=== PATIENT | female | born 1935 | race Caucasian/White ===

== ENCOUNTER → 2016-06-29 | Day surgery (SDC) | payer BC ==
[2016-06-28 10:50] VITALS: Ht 170.2 cm; Wt 56.8 kg
[~2016-06-29] VITALS: Ht 170.2 cm; Wt 56.8 kg
[~2016-06-29] MED LIST: 500ML BSS 0.3ML EPI 1:1000PF IRRIG ONE; ACETAMINOPHEN 325 MG TAB PO PRN; AMLO-114 PO; AMVISC PLUS 0.8ML SYRINGE INT OCU ONE; ASCA500 PO; ASPCH81X PO; ATROPINE SULFATE 0.1 MG/ML 5ML SYR IV PRN; AcetaZOLAMIDE 250 MG TAB PO SCH; BETAXOLOL HCL 0.25% OP SUSP PER DROP CHARGE OPL SCH; BRIMONIDINE TART 0.2% OP SOLN PER DROP CHARGE ONE; BSS FLUSH ONE; CARB25TA12 PO; CLON0.5T3 PO; CLTP PO; ENDOCOAT 0.85ML SYRINGE INT OCU ONE; EpHEDrine SULFATE INJ 50 MG/ML AMP IV PRN; EpINEphrine INJ 1MG/ML AMP 1 MG/ML AMP ONE; FENTANYL CITRATE INJ 50 MCG/1 ML 2 ML VIAL IV PRN; FLUMAZENIL 0.1 MG/1 ML 10 ML VIAL IV PRN; FLUO40CA8 PO; HYDROmorphone INJ 2 MG/ML SYR/VIAL IV PRN; LABETALOL HCL IV 5 MG/ML 20ML IV PRN; LACTATED RINGER'S 1000ML 500 ML IV SCH; LIDOCAINE 4% OP SOLN DROP CHARGE ONE; LIDOCAINE 4% OP SOLN DROP CHARGE OPL SCH; LIDOCAINE HCL 1% MPF 2 ML VIAL ONE; MEPERIDINE HCL 25 MG/ML CARP IV PRN; MIDAZOLAM HCL 1 MG/ML 2ML VIAL ONE; MIX: 4ML BSS 1ML EPI 1:1000 PF INSTIL ONE; MOXIFLOXACIN OPH SOLN PER DROP CHARGE ONE; NALOXONE HCL 0.4 MG/1 ML VIAL/CARP IV PRN; OCUCOAT 1 ML SOLN IO ONE; OMEP40CA PO; ONDANSETRON INJ 2 MG/ML 2 ML VIAL IV PRN; PHENYLEPHRINE 100MCG/ML 5ML SYR IV PRN; POVIDONE-IODINE OP SOLN 30 ML BTL ONE; PROPARACAINE 0.5% OP SOLN PER DROP CHARGE OPL SCH; SENNTAB23 PO; TOBRAMYCIN/DEXAMETHASONE OPH OINT PER APPLN CHARGE ONE; ZCRT/40 PO
--- NOTE | 2016-06-29 08:22 | History & Physical Bridge - SC ---
H&P Re-Evaluation Bridge Note: I have examined the patient, reviewed the History & Physical and in the interval since the performance of the History & Physical I have noted the following changes of clinical significance: No changes noted
[2016-06-29] MEDS: PHENYLEPHRINE HCL 2.5% OP SOLN PER DROP CHARGE OPL SCH ×2 (10:19→10:24)
[2016-06-29] MEDS: TROPICAMIDE 1% OP SOLN PER DROP CHARGE OPL SCH ×2 (10:20→10:25)
[2016-06-29] MEDS: CYCLOPENTOLATE HCL 1% OP SOLN PER DROP CHARGE OPL SCH ×2 (10:21→10:26)
[2016-06-29] MEDS: MOXIFLOXACIN OPH SOLN PER DROP CHARGE OPL SCH ×2 (10:22→10:32)
--- NOTE | 2016-06-29 11:08 | Discharge Instructions-SurgCtr ---
Discharge Instructions Visit Reason for Visit: Cataract Left Eye Discharge Discharge Diagnosis / Problem: Lens Implant Left Eye Discharge Goals Goal(s): Improve function Activity Recommendations Activity Limitations: resume your previous activity Lifting Limitations: no more than 10 pounds Exercise/Sports Limitations: gradually increase as tolerated May Resume Sexual Activity: when tolerated Shower/Bathe: tomorrow Driving or Machine Use: resume 1 day after discharge Anesthesia . Post Anesthesia Instructions: If you have had General Anesthesia or IV Sedation: * Do not drive today. * Resume driving when surgeon permits. * Do not make important decisions or sign legal documents today. * Call surgeon for: 1. Temperature elevations greater than 101 degrees F. 2. Uncontrollable pain. 3. Excessive bleeding. 4. Persistent nausea and vomiting. 5. Medication intolerance (nausea, vomiting or rash). * For nausea and vomiting use only clear liquids such as: tea, soda, bouillon until nausea subsides, then gradually increase diet as tolerated. * If you have any concerns or questions, call your surgeon's office. If physician is unavailable and it is an emergency, call 911 or go to the nearest emergency room. . Instructions / Follow-Up Instructions / Follow-Up ACTIVITY RECOMMENDATIONS: * Light activities. * Mild irritation and blurred vision are common for the first few days. * You may walk outside, read, watch television. * Redness around the white part of the eye is common. MEDICATIONS: Resume previous medications unless instructed otherwise by your surgeon. * Take white Diamox (Acetazolamide) tablet at 1 pm today. Start all eye drops at 1 pm today: * Eye drops (today and tomorrow): Prednisone - one drop in operative eye every 3 hours while awake Besivance - one drop in operative eye every 3 hours while awake SPECIAL CARE INSTRUCTIONS: * Tape plastic shield over eye to sleep at night. Call your doctor at with any concerns or problems. FOLLOW UP VISIT: Follow-up with Dr Perales at [place] office as scheduled. Diet Recommendations Home Diet: no limitations Pending Studies Studies pending at discharge: no Medical Emergencies . Who to Call and When: Medical Emergencies: If at any time you feel your situation is an emergency, please call 911 immediately. . Non-Emergent Contact Non-Emergency issues call your: Policy Writer Call Non-Emergent contact if: your pain is not controlled [phone] . . "Provider Documentation" section prepared by Sarath Perales.
--- NOTE | 2016-06-29 11:10 | [facility] Operative Report ---
Operative Report 1. PREOPERATIVE DIAGNOSIS: Senile nuclear cataract, left eye. 2. POSTOPERATIVE DIAGNOSIS: Senile nuclear cataract, left eye. 3. PROCEDURE: Phacoemulsification of left cataract with posterior chamber lens implant, type [employer], model MX60, power +21.5 diopters. ANESTHESIA: Local standby. SURGEON: Dr. Perales. COMPLICATIONS: None. OPERATING TIME: 10 minutes. 4. OPERATION AND FINDINGS: DESCRIPTION OF PROCEDURE: The left pupil was dilated. The anesthetic was administered using a topical technique. The left eye was prepped and draped. A speculum was placed. A clear corneal incision was formed. The chamber was filled with Amvisc Plus and Endocoat. Epinephrine solution was used. A paracentesis was placed. A capsulorrhexis was performed. The nucleus was hydrodissected. The lens was removed with phacoemulsification. Time was 3.55 seconds. The aspiration unit was used to remove the cortex. The capsule was filled with Amvisc Plus. The lens implant was folded and placed into the capsule. The incision was hydrated. The Amvisc was aspirated. The wound was secure. The chamber was deep. The pupil was round. TobraDex ointment and Vigamox solution were placed. The speculum was removed. The patient was returned to the Recovery Room in stable condition. I attest to the content of the Intraoperative Record and any orders documented therein. Any exceptions are noted below. The scribe's documentation has been prepared in my presence, under my direction and personally reviewed by me in its entirety. I confirm that the note above accurately reflects all work, treatment, procedures, and medical decision making performed by me. I personally scribed for Sarath Perales M.D. ([email or web address]) on 06/29/16 at 11:10. Electronically submitted by Eunice Regan ([email or web address]).
[2016-06-29 11:14] VITALS: BP 128/74; PULSE 84; TEMP 36.8; O2SAT 99
--- NOTE | 2016-06-29 11:54 | Anesthesia Progress Nt - [facility] ---
Anesthesia Post Op Note Date & Time Jun 29, 2016 at 11:54 Vital Signs Pain Intensity: 0 Vital Signs Past 12 Hours Date Time Temp Pulse Resp B/P Pulse Ox O2 Delivery O2 Flow Rate FiO2 06/29/16 11:14 36.8 84 16 128/74 99 Room Air 06/29/16 09:58 36.8 89 20 150/75 95 Room Air Notes Mental Status: alert / awake / arousable, participated in evaluation Pt Amnestic to Procedure: Yes Nausea / Vomiting: adequately controlled Pain: adequately controlled Airway Patency, RR, SpO2: stable & adequate BP & HR: stable & adequate Hydration State: stable & adequate Anesthetic Complications: no major complications apparent
== END | disposition home or self-care (01) ==
LOC: X.SURG 09:15
PROVIDERS: ATTEND Specialist
DX: H25.12 Age-related nuclear cataract, left eye (principal); I10 Essential (primary) hypertension; Z88.8 Allergy status to other drugs, medicaments and biological substances

== ENCOUNTER → 2017-02-23 | Outpatient (CLI) | payer BC ==
[~2017-02-23] MED LIST changes: -500ML BSS 0.3ML EPI 1:1000PF IRRIG ONE; -ACETAMINOPHEN 325 MG TAB PO PRN; -AMVISC PLUS 0.8ML SYRINGE INT OCU ONE; -ATROPINE SULFATE 0.1 MG/ML 5ML SYR IV PRN; -AcetaZOLAMIDE 250 MG TAB PO SCH; -BETAXOLOL HCL 0.25% OP SUSP PER DROP CHARGE OPL SCH; -BRIMONIDINE TART 0.2% OP SOLN PER DROP CHARGE ONE; -BSS FLUSH ONE; -ENDOCOAT 0.85ML SYRINGE INT OCU ONE; -EpHEDrine SULFATE INJ 50 MG/ML AMP IV PRN; -EpINEphrine INJ 1MG/ML AMP 1 MG/ML AMP ONE; -FENTANYL CITRATE INJ 50 MCG/1 ML 2 ML VIAL IV PRN; -FLUMAZENIL 0.1 MG/1 ML 10 ML VIAL IV PRN; -HYDROmorphone INJ 2 MG/ML SYR/VIAL IV PRN; -LABETALOL HCL IV 5 MG/ML 20ML IV PRN; -LACTATED RINGER'S 1000ML 500 ML IV SCH; -LIDOCAINE 4% OP SOLN DROP CHARGE ONE; -LIDOCAINE 4% OP SOLN DROP CHARGE OPL SCH; -LIDOCAINE HCL 1% MPF 2 ML VIAL ONE; -MEPERIDINE HCL 25 MG/ML CARP IV PRN; -MIDAZOLAM HCL 1 MG/ML 2ML VIAL ONE; -MIX: 4ML BSS 1ML EPI 1:1000 PF INSTIL ONE; -MOXIFLOXACIN OPH SOLN PER DROP CHARGE ONE; -NALOXONE HCL 0.4 MG/1 ML VIAL/CARP IV PRN; -OCUCOAT 1 ML SOLN IO ONE; -ONDANSETRON INJ 2 MG/ML 2 ML VIAL IV PRN; -PHENYLEPHRINE 100MCG/ML 5ML SYR IV PRN; -POVIDONE-IODINE OP SOLN 30 ML BTL ONE; -PROPARACAINE 0.5% OP SOLN PER DROP CHARGE OPL SCH; -TOBRAMYCIN/DEXAMETHASONE OPH OINT PER APPLN CHARGE ONE
--- NOTE | 2017-02-23 15:40 | MAMMOGRAPHY REPORT ---
BILATERAL DIGITAL SCREENING MAMMOGRAM WITH CAD: 02/23/2017 CLINICAL HISTORY: Routine screening. TECHNIQUE: Current study was also evaluated with a Computer Aided Detection (CAD) system. Bilateral CC and MLO views were obtained. COMPARISON: Comparison is made to exams dated: 03/13/2015 mammogram, 12/12/2013 mammogram, 07/31/2009 ammogram - [facility], and 07/30/2008. BREAST COMPOSITION: There are scattered areas of fibroglandular density in both breasts. FINDINGS: No suspicious masses, calcifications, or areas of architectural distortion are noted in ei ther breast. There has been no significant interval change compared to prior exams. Nodular asymmetr ies in the left upper outer quadrant are stable compared to prior exams including the 2008 and 2009 e xam, and considered benign given long-term stability. IMPRESSION: ACR BI-RADS CATEGORY 2: BENIGN There is no mammographic evidence of malignancy. A 1 year screening mammogram is recommended. The pa tient will receive written notification of the results. Approximately 10% of breast cancers are not detected with mammography. A negative mammographic report should not delay biopsy if a clinically suggestive mass is present. Eliana Stallings M.D. ah/:02/23/2017 15:11:57 Centrifugal Operator: Carlos RAND(R)(M), [facility] letter sent: Normal 1/2 BI-RADS Code: ACR BI-RADS Category 2: Benign
== END | disposition home or self-care (01) ==
LOC: C.MAMM 14:50
PROVIDERS: ATTEND Family Medicine
DX: Z12.31 Encounter for screening mammogram for malignant neoplasm of breast (principal); M85.89 Other specified disorders of bone density and structure, multiple sites

== ENCOUNTER → 2017-07-21 | Outpatient (CLI) | payer BC | END | disposition home or self-care (01) | LOC: C.PAPS 09:49 | PROVIDERS: ATTEND Obstetrics & Gynecology | DX: Z01.419 Encounter for gynecological examination (general) (routine) without abnormal findings (principal) ==

== ENCOUNTER → 2017-07-21 | Outpatient (CLI) | payer BC | END | disposition home or self-care (01) | LOC: C.LABSPEC 17:23 | PROVIDERS: ATTEND Obstetrics & Gynecology | DX: N89.8 Other specified noninflammatory disorders of vagina (principal) ==

== ENCOUNTER → 2017-08-22 | Outpatient (CLI) | payer BC ==
[2017-08-22 12:35] LABS: BASO % 0.5 %; BASO ABS # 0.03 K/uL (0-0.2); EOS % 3.2 %; EOS ABS # 0.21 K/uL (0-0.5); IG# 0.02 K/uL (0.00-0.02); LYMPH % 37.1 %; LYMPH ABS # 2.42 K/uL (1.2-3.4); MEAN CELL VOLUME 96.7 fL (80-100); MEAN CORPUSCULAR HEMOGLOBIN 30.7 pg (25-34); MEAN CORPUSCULAR HGB CONC 31.7 g/dl (32-36); MEAN PLATELET VOLUME 9.6 fL (7.4-10.4); MONO % 7.4 %; MONO ABS # 0.48 K/uL (0.11-0.59); NEUT % 51.5 %; NEUT ABS # 3.36 K/uL (1.4-6.5); PLATELET COUNT 345 K/uL (130-400); RED CELL DISTRIBUTION WIDTH CV 13.6 % (11.5-14.5); RED CELL DISTRIBUTION WIDTH SD 47.9 fL (36.4-46.3); WHITE BLOOD COUNT 6.52 K/uL (4.8-10.8)
[2017-08-22 13:44] LABS: ALBUMIN 3.5 gm/dl (3.4-5.0); ALKALINE PHOSPHATASE 87 U/L (45-117); ALT/SGPT 14 U/L (12-78); AST/SGOT 13 U/L (15-37); BLOOD UREA NITROGEN 11 mg/dl (7-18); CALCIUM 9.5 mg/dl (8.5-10.1); CARBON DIOXIDE 31 mmol/L (21-32); GLUCOSE 95 mg/dl (70-99); POTASSIUM 4.4 mmol/L (3.5-5.1); SODIUM 138 mmol/L (136-145); TOTAL PROTEIN 7.7 gm/dl (6.4-8.2)
[2017-08-22 13:55] LABS: CHOLESTEROL 155 mg/dl (0-200); LDL CHOLESTEROL CALCULATED 75 mg/dl
== END | disposition home or self-care (01) ==
LOC: C.LABOAKS 09:25
PROVIDERS: ATTEND Internal Medicine Critical Care Medicine
DX: D64.9 Anemia, unspecified (principal); G62.9 Polyneuropathy, unspecified; E03.9 Hypothyroidism, unspecified; E78.5 Hyperlipidemia, unspecified; N28.9 Disorder of kidney and ureter, unspecified

== ENCOUNTER → 2017-08-29 | Outpatient (CLI) | payer BC ==
--- NOTE | 2017-08-29 13:05 | DIAGNOSTIC IMAGING REPORT ---
VIDEO SWALLOW CLINICAL HISTORY: 82 years-old Female with MODIFIED BARIUM SWALLOW. Acute dysphasia TECHNIQUE: Video fluoroscopic evaluation of swallowing was performed in the AP and lateral projections by the speech pathology staff. The patient is fed nectar-thick and thin liquid barium, a barium coated wafer, and barium pudding. FLUOROSCOPY TIME: 3 minutes. A total of 964 images were submitted. COMPARISON STUDY: Barium swallow study 04/05/2016. FINDINGS: Silent aspiration with thin liquid barium, and nectar thick liquid. Prolonged oropharyngeal phase of swallowing noted with the cracker consistency which also demonstrated residue collection within the vallecula and piriform sinuses. Esophageal dysmotility is noted throughout the study, notably seen with the nectar thick and pudding consistencies. Degenerative spurring throughout the lumbar spine incidentally noted. Atherosclerosis of the aorta. No large hiatal hernia identified. IMPRESSION: 1. Silent aspiration with thin liquid and nectar thick consistencies. 2. Please see the speech pathologist report for detailed findings and recommendations. Electronically signed by: Edwin Bullock M.D. 08/29/2017 1:04 PM Dictated Date/Time: 08/29/2017 12:59 PM
--- NOTE | 2017-08-29 14:01 | SWALLOWING EVALUATION ---
HISTORY: This 82 year old woman was referred to [facility] ([facility]) for a Video Fluoroscopic Swallow Study (VFSS) in order to rule out aspiration, and identify the safest consistencies for possible return to oral intake. The patient reported that she has weight loss, difficulty chewing due to a loose lower denture, and food becoming "stuck" at times in her throat. PMH is significant for pneumonia and Parkinson's Disease. She reports she has not had any recent pneumonia. Current diet is regular, but the patient states that she will choose to eat foods that are very soft and/or will bring foods back to her room and chop them finely (lives at [facility]). The patient has participated in s previous Video Swallow study in 2011. A regular diet was recommended, as no aspiration or thony-pharyngeal difficulties were evidenced. She also participated in a Barium Swallow that same year and was found to have esophageal dysmotility and a sliding hiatal hernia. PROCEDURE: The patient was seen in the Radiology Department of [facility] for the VFSS. Cursory examination of the oral cavity revealed upper and lower dentures. The upper denture fit well, however the lower denture is loose and the patient requested it be removed for the study as she was afraid it would fall out while chewing. Typically she likes to wear the lower denture when she is not eating. Movement of the articulators was mildly impaired with strength and ROM with mild tremor associated with Parkinson's. Speech was clear, mildly low volume. The patient was positioned upright on a stool for the procedure and was viewed in both the Anterior-Posterior (A-P) and Lateral planes. Volitional phonation exercises completed in the A-P plane revealed bilateral vocal fold movement and vocal intensity was mildly low. In the lateral plane, the patient was given the following boluses: 1 tsp. thin liquid barium x 2, single swallow thin liquid barium self-presented from a cup x2 (one with a chin tuck), 1 tsp. nectar-thick liquid barium, single swallow nectar-thick liquid barium self-presented from a cup x2 (one with a chin tuck), 1 tsp. barium pudding, and 1 club cracker coated in barium pudding. The patient was then repositioned into the A-P plane and given the following bolus: 1 tsp. barium pudding. RESULTS: Oral Stage: Lip closure was reduced with inter-labial escape that did not progress past the navdeep boarder. The patient was able to maintain a cohesive liquid bolus upon command. Mastication was disorganized. Lingual motion for bolus transport was also repetitive and disorganized. There was a collection of retention along the tongue and palate after the initial swallow. The initiation of the pharyngeal swallow was delayed and triggered when the bolus head reached the pyriforms. Pharyngeal Stage: Soft palate elevation was complete. Laryngeal elevation revealed partial superior movement of the thyroid cartilage and partial approximation of the arytenoids to the epiglottic base. Anterior hyoid excursion was partially reduced. Epiglottic deflection was complete. Laryngeal vestibular closure was in-complete as evidenced by a narrow column of contrast being located in the vestibule at the height of the swallow. The pharyngeal stripping wave was present yet diminished. Pharyngeal contraction was complete. There was partial distention and duration to the opening of the pharyngoesophageal segment (PES). Tongue base retraction was reduced, with a narrow column of contrast located between the tongue base and pharyngeal wall during the swallow. There was a collection of retention located in the valleculae, along the laryngeal aspect of the epiglottis, along the aryepiglottic folds, and in the pyriforms after the swallow. The patient presented with laryngeal penetration and SILENT aspiration of both thin and nectar thick liquids given via spoon and cup. Verbal cues to produce a cough and throat clear did not assist with clearing any of the aspiration and retention remained. When a chin tuck was used with thin and nectar, there was laryngeal penetration without aspiration. Aspiration is attributed to her delayed swallow and generalized weakness of the swallow, resulting in the inability to clear retention. No other aspiration was identified. A majority of the retention in the valleculae (noted mostly with the cracker) cleared with a second swallow. Esophageal Stage: There was retention located in the mid and distal esophagus, with retrograde flow below the PES. This is suggestive of esophageal dysmotility and reflux. A liquid wash assisted to clear some of the retention but not fully. SUMMARY/RECOMMENDATIONS: The patient presents with moderate-severe thony-pharyngeal dysphagia. She also presents with signs and symptoms of esophageal dysfunction. The patient has not had any recent pneumonia. The following is recommended: 1. Mechanical soft (chopped) diet and thin liquids. Modify liquids to nectar thick should the patient have any increased difficulty tolerating thins (worsening CXR, spiking of temperature). 2. Aspiration and GERD precautions. NO STRAWS. Fully upright for meals and for 30 minutes after meals. Do not lay flat, elevate head of the bed to at least 30 degrees at all time, to include while sleeping. 3. Stringent oral care to include brushing all surfaces of the mouth and tongue prior to and after meals, and before bed. This will reduce the amount of oral bacteria that can be aspirated in saliva. 4. Safe swallow strategies: Alternate solids and liquids. Use of a chin tuck with all liquids: 1. Take one sip of liquid 2. Hold the liquid in the mouth. 3. Tuck chin to the chest while liquid remains in the mouth 4. Swallow while chin is down. 5. Consider a consultation with a Registered Dietitian re: need for supplements due to weight loss as appropriate. 6. Follow up GEOMORPHOLOGY TEACHER services with focus on continued generalized pharyngeal strengthening exercises (to include but not limited to tongue base, effortful swallow, thermal stimulation) and carryover of diet and safe swallow strategies. May also need to consider a "slippery" diet (avoiding foods that are dry, thick, pasty, doughy and use of condiments on food) with any increased esophageal discomfort while eating. Results and recommendations were discussed with the patient immediately following the study with verbal understanding. Verbal and written information was provided regarding safe swallow strategies and description of the chin tuck strategy, along with stringent oral care, with verbal understanding as well. Thank you for referral of this patient. Please contact me at if any additional information is needed.
== END | disposition home or self-care (01) ==
LOC: C.RAD 10:28
PROVIDERS: ATTEND Internal Medicine Critical Care Medicine
DX: R13.12 Dysphagia, oropharyngeal phase (principal)

== ENCOUNTER 2018-09-23 11:06 | Inpatient (IN) ==
[2018-09-23] MEDS ORDERED: ACETAMINOPHEN 500 MG TAB PO STA (12:08)
--- NOTE | 2018-09-23 12:30 | XRay Report ---
XR chest 1V portable CLINICAL HISTORY: 83 years-old Female presenting with Sepsis. TECHNIQUE: Portable upright AP view of the chest was obtained. COMPARISON: 02/25/2016. FINDINGS: Atherosclerosis of the aortic arch. Cardiac silhouette enlarged. Bilateral hilar prominence. Mild hyp erinflation with significant heterogeneity of lung parenchyma. Patchy reticulonodular opacities with a basilar predominance. Relative radiolucency of the upper lobes. No large effusion or pneumothorax. Multiple old right rib fractures. Suspected osteopenia. Upper abdomen normal. IMPRESSION: 1. Bibasilar predominant reticulonodular opacities more prominent on the current exam. An infectious etiology is not excluded. 2. Suspected underlying chronic lung disease such as emphysema. 3. Cardiomegaly. 4. Bilateral hilar prominence may be vascular in etiology versus underlying lymphadenopathy. Electronically signed by: Santiago Bal M.D. 09/23/2018 12:29 PM
[2018-09-23 12:44] LABS: Base Excess VBG 3.5 mEq/L; Oxygen Saturation VBG 85.3 %; pH VBG 7.51 (7.36-7.41)
[2018-09-23 12:47] LABS: Hematocrit (blood only) 35.1 % (37-47); Hemoglobin 11.3 g/dL (12.0-16.0); Mean Corpuscular Hgb Conc 32.2 g/dL (32-36); Mean Corpuscular Volume 94.6 fL (80-100); Mean Platelet Volume 9.2 fL (7.4-10.4); Platelet Count 273 K/uL (130-400); RDW Coefficient of Variation 13.9 % (11.5-14.5); RDW Standard Deviation 48.3 fL (36.4-46.3); Red Blood Count 3.71 M/uL (4.2-5.4); White Blood Count 25.01 K/uL (4.8-10.8)
[2018-09-23] MEDS ORDERED: SODIUM CHLORIDE 0.9% 1000ML 1,000 ML IV ONE (12:53)
[2018-09-23] MEDS ORDERED: PIPERACILL/TAZOBAC CONSULT ACTIVE PRN ×2 (12:53→15:01)
[2018-09-23] MEDS ORDERED: PIPERACILLIN/TAZOBACTAM 4.5 GM/120 ML BAG IV ONE (12:53)
[2018-09-23 13:00] LABS: INR 1.1 (0.9-1.1); Partial Thromboplastin Time 26.8 Seconds (21.0-31.0); Prothrombin Time 10.9 Seconds (9.0-12.0)
[2018-09-23 13:02] LABS: Alanine Aminotransferase 11 U/L (12-78); Albumin Level 3.1 gm/dl (3.4-5.0); Aspartate Aminotransferase 11 U/L (15-37); BUN Creatinine Ratio 30.6 (10-20); Blood Urea Nitrogen 22 mg/dl (7-18); Calcium 9.4 mg/dl (8.5-10.1); Carbon Dioxide 28 mmol/L (21-32); Chloride 106 mmol/L (98-107); Creatinine Clr Calc Pharmacy 53.8 ml/min; Est GFR (African American) 93.5; Est GFR (Non-African American) 80.7; Glucose 124 mg/dl (70-99); Potassium 3.8 mmol/L (3.5-5.1); Sodium 141 mmol/L (136-145)
[2018-09-23 13:06] LABS: Albumin Globulin Ratio 0.7 (0.9-2); Alkaline Phosphatase 98 U/L (45-117); Bilirubin,Total 0.6 mg/dl (0.2-1); Globulin 4.4 gm/dl (2.5-4.0); Total Protein 7.5 gm/dl (6.4-8.2); Troponin I < 0.015 ng/ml (0-0.045)
[2018-09-23 13:23] LABS: Basophils # (auto) 0.01 K/uL (0-0.2); Immature Granulocytes % (auto) 0.4 %; Lymphocytes # (auto) 0.36 K/uL (1.2-3.4); Lymphocytes % (auto) 1.4 %; Monocytes # (auto) 1.17 K/uL (0.11-0.59); Monocytes % (auto) 4.7 %; Neutrophils # (auto) 23.37 K/uL (1.4-6.5); Neutrophils % (auto) 93.5 %
[2018-09-23 13:37] LABS: Influenza A virus by PCR Neg for Influ A (Neg); Influenza B virus by PCR Neg for Influ B (Neg)
--- NOTE | 2018-09-23 14:00 | History & Physical Report ---
Date of Service September 23, 2018 Assessment & Plan (1) PNA (pneumonia): Noted on CXR WBC elevated and febrile in the ED Started on zosyn in the ED, will continue Gentle IVF Lactic acid is neg Flu neg UA pending collection PT/OT (2) Anxiety: continue home meds (3) Hyperlipidemia: continue home meds (4) HTN (hypertension): continue home meds (5) GERD (gastroesophageal reflux disease): continue home meds (6) Parkinson disease: continue home meds (7) DVT prophylaxis: Lovenox, SCDs for DVT proph History of Present Illness Primary Care Provider: Santiago Ulloa MD 83 y/o F c/o weakness. Pt states that she felt her usual self on 09/21. On 09/22, she was very weak and states she did not get out of bed or even change out of her nightgown all day, which is unusual for her. She states she had L ear pain and drainage that day, which is also unusual. Today, she continued to feel weak and tired but her ear pain and drainage stopped without any intervention. She states that there are several people living near her at [facility] who have the flu, so she thought she should be seen. Pt denies fever, SOB, chest pain, abd pain, n/v, LE pain or swelling. She states she is always constipated and this is the case currently. Pt states she had no appetite the last two days but ate fine on 09/21. Pt was given IVF and zosyn in the ED. She states that she feels no different at present, but that she has not been OOB to see if she feels less weak. Allergies Allergy/AdvReac Type Severity Reaction Status Date / Time buspirone Allergy Unknown "PATIENT Verified 09/23/18 11:36 UNSURE" lisinopril Allergy Unknown "PATIENT Verified 09/23/18 11:36 UNSURE" pramipexole Allergy Unknown "PATIENT Verified 09/23/18 11:36 UNSURE" Home Medications Home Medications Medication Instructions Recorded Confirmed Type amlodipine 10 mg PO DAILY 09/23/18 09/23/18 History ascorbic acid (vitamin C) [Vitamin 1,000 mg PO DAILY 09/23/18 09/23/18 History C] aspirin 81 mg PO DAILY 09/23/18 09/23/18 History calcium carbonate [Calcium 600] 600 mg PO DAILY 09/23/18 09/23/18 History carbidopa-levodopa 2 tabs PO QID 09/23/18 09/23/18 History clonazepam 0.5 mg PO BID 09/23/18 09/23/18 History fluoxetine 40 mg PO DAILY 09/23/18 09/23/18 History omeprazole 40 mg PO DAILY 09/23/18 09/23/18 History simvastatin 40 mg PO HS 09/23/18 09/23/18 History Past Med/Surg History Social History Feels Safe at Home: Yes Smoking Status: Never smoker Hx Alcohol Use: No Hx Substance Use: No Review of Systems Pertinent positives and negatives reviewed in HPI--all others negative Physical Exam Vital Signs (Past 24 Hours): Last Vital Signs Temp 38.1 C H 09/23/18 11:19 Pulse 100 H 09/23/18 13:30 Resp 27 H 09/23/18 13:30 BP 130/72 09/23/18 13:30 Pulse Ox 92 09/23/18 13:30 Constitutional: WD/WN, vitals as above Eyes: normal visual morgan by confrontation and + anicteric sclerae Neck: normal visual inspection and trachea midline Respiratory: normal respiratory effort; no respiratory distress Auscultation: + crackles (b/l bases); no wheezes Cardiovascular: Rate/Rhythm: regular rate and regular rhythm Gastrointestinal (Abdomen): Inspection/Auscultation: abdomen not distended Percussion/Palpation: abdomen soft; abdomen nontender Musculoskeletal: Head/Neck/Chest: normocephalic and head atraumatic negative for edema, peripheral pulses intact Skin: no rashes, warm and dry Neurologic: awake; not confused Speech / Cognition: normal speech Psychiatric: A+Ox3, euthymic affect Results & Data Diagnostic Findings CXR: b/l PNA Code Status & VTE Plan Code Status Pt states she does not want chest compressions. She is for intubation however. VTE Prophylaxis Plan VTE Prophylaxis will be ordered: Yes
[2018-09-23] MEDS ORDERED: ONDANSETRON INJ 2 MG/ML 2 ML VIAL IV PRN (15:01)
[2018-09-23] MEDS ORDERED: MAGNESIUM HYDROXIDE SUSP 30 ML UDC PO PRN (15:01)
[2018-09-23] MEDS ORDERED: PIPERACILLIN/TAZOBACTAM 4.5 GM in DEXTROSE 5% 100 ML IV STA (15:01)
[2018-09-23] MEDS ORDERED: ACETAMINOPHEN 325 MG TAB PO PRN (15:01)
[2018-09-23 15:13] LABS: Appearance Urine Clear (Clear); Bacteria Urine Automated Negative (Negative); Bilirubin Urine Negative (Negative); Blood Urine 2+ (Negative); Color Urine Yellow; Epithelial Cell Urine Auto >30 /lpf (0-5); Glucose Urine UA Negative (Negative); Ketones Urine 1+ (Negative); Leukocyte Esterase Urine 1+ (Negative); Nitrite Urine Negative (Negative); Protein Urine 1+ (Negative); RBC Urine Automated >30 /hpf (0-4); Specific Gravity Urine 1.031 (1.000-1.030); Urobilinogen Urine Negative (Negative)
[2018-09-23] MEDS: NSS + 20MEQ KCL 20 MEQ/1,000 ML BAG IV SCH (15:41)
[2018-09-23] MEDS: AZITHROMYCIN 500 MG in DEXTROSE 5% 250 ML IV SCH (17:02)
[2018-09-23] MEDS: CARBIDOPA/LEVODOPA 25/100MG TAB PO SCH ×2 (18:26→20:37)
--- NOTE | 2018-09-23 19:02 | Emergency Department Note ---
Entered by Cuate Oro acting as a scribe for History of Present Illness General Chief complaint: Dizziness Stated complaint: DIZZY, PARKINSONISM DISEASE, HAVE NOT EATEN IN 24 Source: patient and family History of Present Illness Provider complaint: Left ear pain Onset (ago): day(s) 1 Location: eyes and left Pain Consistency: + constant Maximum Pain Intensity: 0 Associated symptoms: + denies other symptoms (swelling in legs, and any problems with urination or moving her bowels) and + cough; no headaches and no n ausea/vomiting The patient is a 83 year old female who presents to the Emergency Room with complaints of left ear pain beginning approximately 1 day ago. The family member at bedside provides much of the HPI. He states that the patient cancelled most of the plans she had today so he knew that the patient was sick. The patient states that she has had left ear pain and discharge with a cough. The patient denies headaches, nausea/vomiting, swelling in legs, and any problems with urination or moving her bowels. The patient reports that she got her flu shot this year and did take all of her daily medications today. The patient's family member also adds that the patient has not eaten anything since yesterday morning. The patient denies any past issues with her lungs. Home Medications Home Medications Medication Instructions Recorded Confirmed Type amlodipine 10 mg PO DAILY 09/23/18 09/23/18 History ascorbic acid (vitamin C) [Vitamin 1,000 mg PO DAILY 09/23/18 09/23/18 History C] aspirin 81 mg PO DAILY 09/23/18 09/23/18 History calcium carbonate [Calcium 600] 600 mg PO DAILY 09/23/18 09/23/18 History carbidopa-levodopa 2 tabs PO QID 09/23/18 09/23/18 History clonazepam 0.5 mg PO BID 09/23/18 09/23/18 History fluoxetine 40 mg PO DAILY 09/23/18 09/23/18 History omeprazole 40 mg PO DAILY 09/23/18 09/23/18 History simvastatin 40 mg PO HS 09/23/18 09/23/18 History Allergies Allergy/AdvReac Type Severity Reaction Status Date / Time buspirone Allergy Unknown "PATIENT Verified 09/23/18 11:36 UNSURE" lisinopril Allergy Unknown "PATIENT Verified 09/23/18 11:36 UNSURE" pramipexole Allergy Unknown "PATIENT Verified 09/23/18 11:36 UNSURE" Past Med/Surg History Medical History Parkinson disease GERD (gastroesophageal reflux disease) HTN (hypertension) Hyperlipidemia Anxiety Social History Communication Ability: Impaired Beliefs That Will Affect Care: None marital status: Current Living Situation: Assisted Current Living Situation Comment: [facility] Other Information That Helps Us Care for You: No Feels Safe at Home: Yes Safety Concerns: Feels Safe At This Time Smoking Status: Never smoker Hx Alcohol Use: No Hx Substance Use: No Review of Systems See HPI for pertinent positives & negatives. and A total of 10 systems reviewed and were otherwise negative Physical Exam Vital Signs Vital Signs - 24 hr 09/23/18 23:00 09/23/18 23:55 09/24/18 08:21 Temperature 36.9 C 37.0 C Temperature Source Oral Oral Pulse Rate [Finger] 102 H 94 H Pulse Rhythm [Finger] Pulse Strength [Finger] Respiratory Rate 16 18 Respiratory Effort / Characteristics Non-Labored Spontaneous Respiratory Depth Normal Respiratory Pattern Regular Blood Pressure [Left Arm] 129/70 132/76 Blood Pressure Mean [Left Arm] 89 94 Blood Pressure Position [Left Arm] Pulse Oximetry 92 92 Oxygen Delivery Method Room Air Room Air 09/24/18 15:00 Temperature 36.6 C Temperature Source Oral Pulse Rate [Finger] 87 Pulse Rhythm [Finger] Regular Pulse Strength [Finger] Normal Respiratory Rate 18 Respiratory Effort / Characteristics Respiratory Depth Normal Respiratory Pattern Blood Pressure [Left Arm] 130/79 Blood Pressure Mean [Left Arm] 96 Blood Pressure Position [Left Arm] Sitting Pulse Oximetry 97 Oxygen Delivery Method Room Air GENERAL: Patient is awake, alert, and in no acute distress.Patient is resting comfortably and showing no signs of anxiety. Lustiness response to questions but appropriate. EYES: The conjunctivae are clear. The pupils are round and reactive. EARS, NOSE, MOUTH AND THROAT: The nose is without any evidence of any deformity. Mucous membranes are dry, right TM was clear, left was sunken and erythematous. There was no mastoid tenderness appreciated.Tongue is midline NECK: The neck is nontender and supple. RESPIRATORY: Normal respiratory effort is noted. Diminished at left base, rales at right base. CARDIOVASCULAR: Regular rate and rhythm noted. There no murmurs rubs or gallops normal S1 normal S2 GASTROINTESTINAL: The abdomen is soft. Bowel sounds are present in all quadrants. Abdomen is nontender. MUSCULOSKELETAL/EXTREMITIES: There is no evidence of gross deformity. Full range of motion is noted in the hips and shoulders. SKIN: There is no obvious evidence of any rash. There are no petechiae, pallor or cyanosis noted. NEUROLOGIC: Patient is awake alert and oriented x3. Course 1206: The patient was evaluated in room C06, and a complete history and physical examination were performed. 1258: I talked to family. We are going to keep her because she has PNA and a high white count. 1319: I reviewed the patient's case with [facility] hospitalist -Dr. Meléndez. He will evaluate the patient for further management. Administered Medications Amlodipine Besylate (Norvasc) 10 mg PO DAILY CECILIA Stop: 10/24/18 08:59 Last Admin: 09/24/18 08:00 Dose: 10 mg Documented by: [id number] Ascorbic Acid (Vitamin C) 1,000 mg PO DAILY CECILIA Stop: 10/24/18 08:59 Last Admin: 09/24/18 08:00 Dose: 1,000 mg Documented by: [id number] Aspirin (Ecotrin Ectab) 81 mg PO DAILY CECILIA Stop: 10/24/18 08:59 Last Admin: 09/24/18 08:00 Dose: 81 mg Documented by: [id number] Calcium Carbonate (Os-Kilo 500) 1,250 mg PO DAILY CECILIA Stop: 10/24/18 08:59 Last Admin: 09/24/18 08:00 Dose: 1,250 mg Documented by: [id number] Carbidopa/Levodopa (Sinemet 25/100 Mg) 2 tab PO QID CECILIA Stop: 10/23/18 16:59 Last Admin: 09/24/18 08:00 Dose: 2 tab Documented by: [id number] Admin: 09/23/18 20:37 Dose: 2 tab Documented by: [id number] Admin: 09/23/18 18:26 Dose: 2 tab Documented by: [id number] Clonazepam (Klonopin) 0.5 mg PO BID CECILIA Stop: 10/23/18 20:59 Last Admin: 09/24/18 08:02 Dose: 0.5 mg Documented by: [id number] Admin: 09/23/18 20:37 Dose: 0.5 mg Documented by: [id number] Enoxaparin Sodium (Lovenox) 40 mg SQ QAM CECILIA Stop: 10/24/18 08:59 Last Admin: 09/24/18 08:00 Dose: 40 mg Documented by: [id number] Fluoxetine HCl (Prozac) 40 mg PO DAILY CECILIA Stop: 10/24/18 08:59 Last Admin: 09/24/18 08:00 Dose: 40 mg Documented by: [id number] Potassium Chloride/Sodium Chloride (Normal Saline W/20 Meq Kcl) 20 meq in 1,000 mls @ 50 mls/hr IV .Q20H CECILIA Stop: 10/23/18 15:29 Last Admin: 09/24/18 11:08 Dose: 50 mls/hr Documented by: [id number] Infusion: 09/24/18 11:08 Dose: 50 mls/hr Documented by: [id number] Admin: 09/23/18 15:41 Dose: 50 mls/hr Documented by: [id number] Ceftriaxone Sodium 2,000 mg/ (Dextrose) 70 mls @ 140 mls/hr IV Q24H CECILIA; Protocol Stop: 09/30/18 17:59 Last Infusion: 09/23/18 20:11 Dose: 0 mls/hr Documented by: [id number] Admin: 09/23/18 19:09 Dose: 140 mls/hr Documented by: [id number] Azithromycin 500 mg/ Dextrose 255 mls @ 127.5 mls/hr IV Q24H CECILIA; Protocol Stop: 09/30/18 15:59 Last Infusion: 09/23/18 19:21 Dose: 0 mls/hr Documented by: [id number] Admin: 09/23/18 17:02 Dose: 127.5 mls/hr Documented by: [id number] Pantoprazole Sodium (Protonix) 40 mg PO DAILY CECILIA Stop: 10/24/18 08:59 Last Admin: 09/24/18 08:00 Dose: 40 mg Documented by: [id number] Simvastatin (Zocor) 40 mg PO HS CECILIA Stop: 10/23/18 20:59 Last Admin: 09/23/18 20:37 Dose: 40 mg Documented by: [id number] Discontinued Medications Acetaminophen (Tylenol) 1,000 mg PO NOW STA Stop: 09/23/18 12:09 Last Admin: 09/23/18 12:58 Dose: 1,000 mg Documented by: [id number] Sodium Chloride (Nss 1000ml) 1,000 mls @ 999 mls/hr IV .Q1H1M ONE Stop: 09/23/18 13:53 Last Infusion: 09/23/18 14:07 Dose: 0 mls/hr Documented by: [id number] Admin: 09/23/18 13:06 Dose: 999 mls/hr Documented by: [id number] Piperacillin Sod/Tazobactam Sod (Zosyn) 4.5 gm in 120 mls @ 240 mls/hr IV NOW ONE Stop: 09/23/18 13:22 Last Infusion: 09/23/18 13:36 Dose: 0 mls/hr Documented by: [id number] Admin: 09/23/18 13:06 Dose: 240 mls/hr Documented by: [id number] Medical Decision Making Differential Diagnosis Differential diagnosis: Etiologies such as viral syndrome, otitis, pharyngitis, pneumonia, influenza, meningitis, urinary tract infection, sepsis, bacteremia, as well as others were entertained. Medical Records Attestation: I reviewed the patient's medical records. Home Medications Current Medication List: was personally reviewed by me Laboratory Data Attestation: I reviewed the patient's lab results. Result diagrams: 09/24/18 05:47 09/24/18 05:47 Lab Results 09/23/18 09/23/18 09/23/18 Range/Units 12:26 12:26 12:26 WBC 25.01 H (4.8-10.8) K/uL RBC 3.71 L (4.2-5.4) M/uL Hgb 11.3 L (12.0-16.0) g/dL Hct 35.1 L (37-47) % MCV 94.6 (80-100) fL MCH 30.5 (25-34) pg MCHC 32.2 (32-36) g/dL RDW Std Deviation 48.3 H (36.4-46.3) fL RDW Coeff of Andrew 13.9 (11.5-14.5) % Plt Count 273 (130-400) K/uL MPV 9.2 (7.4-10.4) fL Immature Gran % (Auto) 0.4 % Neut % (Auto) 93.5 % Lymph % (Auto) 1.4 % Gentry % (Auto) 4.7 % Eos % (Auto) 0.0 % Baso % (Auto) 0.0 % Immature Gran # (Auto) 0.10 H (0.00-0.02) K/uL Neut # (Auto) 23.37 H (1.4-6.5) K/uL Lymph # (Auto) 0.36 L (1.2-3.4) K/uL Gentry # (Auto) 1.17 H (0.11-0.59) K/uL Eos # (Auto) 0.00 (0-0.5) K/uL Baso # (Auto) 0.01 (0-0.2) K/uL ESR 59 H (0-21) mm/hr PT 10.9 (9.0-12.0) Seconds INR 1.1 (0.9-1.1) APTT 26.8 (21.0-31.0) Seconds PTT Ratio 1.0 VBG pH (7.36-7.41) VBG pCO2 (38-50) mmHg VBG pO2 mmHg VBG HCO3 mmol/L VBG O2 Saturation % VBG Base Excess mEq/L Barometric Pressure mm/Hg Sodium (136-145) mmol/L Potassium (3.5-5.1) mmol/L Chloride (98-107) mmol/L Carbon Dioxide (21-32) mmol/L Anion Gap (3-11) BUN (7-18) mg/dl Creatinine (0.6-1.2) mg/dl Est Cr Clr Drug Dosing ml/min Est GFR ( Amer) Est GFR (Non-Af Amer) BUN/Creatinine Ratio (10-20) Glucose (70-99) mg/dl Lactate (0.4-2.0) mmol/L Calcium (8.5-10.1) mg/dl Magnesium (1.8-2.4) mg/dl Total Bilirubin (0.2-1) mg/dl AST (15-37) U/L ALT (12-78) U/L Alkaline Phosphatase (45-117) U/L Troponin I (0-0.045) ng/ml C-Reactive Protein (0-0.29) mg/dl Total Protein (6.4-8.2) gm/dl Albumin (3.4-5.0) gm/dl Globulin (2.5-4.0) gm/dl Albumin/Globulin Ratio (0.9-2) Procalcitonin (0-0.5) ng/ml Urine Color Urine Appearance (Clear) Urine pH (4.5-7.5) Ur Specific [place] (1.000-1.030) Urine Protein (Negative) Urine Glucose (UA) (Negative) Urine Ketones (Negative) Urine Blood (Negative) Urine Nitrite (Negative) Urine Bilirubin (Negative) Urine Urobilinogen (Negative) Ur Leukocyte Esterase (Negative) Urine WBC (Auto) (0-5) /hpf Urine RBC (Auto) (0-4) /hpf U Hyaline Cast (Auto) (0-5) /lpf U Epithel Cells (Auto) (0-5) /lpf Urine Bacteria (Auto) (Negative) Influenza Type A (PCR) (Neg) Influenza Type B (PCR) (Neg) 09/23/18 09/23/18 09/23/18 Range/Units 12:26 12:26 12:26 WBC (4.8-10.8) K/uL RBC (4.2-5.4) M/uL Hgb (12.0-16.0) g/dL Hct (37-47) % MCV (80-100) fL MCH (25-34) pg MCHC (32-36) g/dL RDW Std Deviation (36.4-46.3) fL RDW Coeff of Andrew (11.5-14.5) % Plt Count (130-400) K/uL MPV (7.4-10.4) fL Immature Gran % (Auto) % Neut % (Auto) % Lymph % (Auto) % Gentry % (Auto) % Eos % (Auto) % Baso % (Auto) % Immature Gran # (Auto) (0.00-0.02) K/uL Neut # (Auto) (1.4-6.5) K/uL Lymph # (Auto) (1.2-3.4) K/uL Gentry # (Auto) (0.11-0.59) K/uL Eos # (Auto) (0-0.5) K/uL Baso # (Auto) (0-0.2) K/uL ESR (0-21) mm/hr PT (9.0-12.0) Seconds INR (0.9-1.1) APTT (21.0-31.0) Seconds PTT Ratio VBG pH (7.36-7.41) VBG pCO2 (38-50) mmHg VBG pO2 mmHg VBG HCO3 mmol/L VBG O2 Saturation % VBG Base Excess mEq/L Barometric Pressure mm/Hg Sodium 141 (136-145) mmol/L Potassium 3.8 (3.5-5.1) mmol/L Chloride 106 (98-107) mmol/L Carbon Dioxide 28 (21-32) mmol/L Anion Gap 8.0 (3-11) BUN 22 H (7-18) mg/dl Creatinine 0.70 (0.6-1.2) mg/dl Est Cr Clr Drug Dosing 53.8 ml/min Est GFR ( Amer) 93.5 Est GFR (Non-Af Amer) 80.7 BUN/Creatinine Ratio 30.6 H (10-20) Glucose 124 H (70-99) mg/dl Lactate 0.8 (0.4-2.0) mmol/L Calcium 9.4 (8.5-10.1) mg/dl Magnesium 2.0 (1.8-2.4) mg/dl Total Bilirubin 0.6 (0.2-1) mg/dl AST 11 L (15-37) U/L ALT 11 L (12-78) U/L Alkaline Phosphatase 98 (45-117) U/L Troponin I < 0.015 (0-0.045) ng/ml C-Reactive Protein 16.90 H (0-0.29) mg/dl Total Protein 7.5 (6.4-8.2) gm/dl Albumin 3.1 L (3.4-5.0) gm/dl Globulin 4.4 H (2.5-4.0) gm/dl Albumin/Globulin Ratio 0.7 L (0.9-2) Procalcitonin 0.26 (0-0.5) ng/ml Urine Color Urine Appearance (Clear) Urine pH (4.5-7.5) Ur Specific [place] (1.000-1.030) Urine Protein (Negative) Urine Glucose (UA) (Negative) Urine Ketones (Negative) Urine Blood (Negative) Urine Nitrite (Negative) Urine Bilirubin (Negative) Urine Urobilinogen (Negative) Ur Leukocyte Esterase (Negative) Urine WBC (Auto) (0-5) /hpf Urine RBC (Auto) (0-4) /hpf U Hyaline Cast (Auto) (0-5) /lpf U Epithel Cells (Auto) (0-5) /lpf Urine Bacteria (Auto) (Negative) Influenza Type A (PCR) (Neg) Influenza Type B (PCR) (Neg) 09/23/18 09/23/18 09/23/18 Range/Units 12:26 12:55 15:03 WBC (4.8-10.8) K/uL RBC (4.2-5.4) M/uL Hgb (12.0-16.0) g/dL Hct (37-47) % MCV (80-100) fL MCH (25-34) pg MCHC (32-36) g/dL RDW Std Deviation (36.4-46.3) fL RDW Coeff of Andrew (11.5-14.5) % Plt Count (130-400) K/uL MPV (7.4-10.4) fL Immature Gran % (Auto) % Neut % (Auto) % Lymph % (Auto) % Gentry % (Auto) % Eos % (Auto) % Baso % (Auto) % Immature Gran # (Auto) (0.00-0.02) K/uL Neut # (Auto) (1.4-6.5) K/uL Lymph # (Auto) (1.2-3.4) K/uL Gentry # (Auto) (0.11-0.59) K/uL Eos # (Auto) (0-0.5) K/uL Baso # (Auto) (0-0.2) K/uL ESR (0-21) mm/hr PT (9.0-12.0) Seconds INR (0.9-1.1) APTT (21.0-31.0) Seconds PTT Ratio VBG pH 7.51 H (7.36-7.41) VBG pCO2 34 L (38-50) mmHg VBG pO2 47 mmHg VBG HCO3 26 mmol/L VBG O2 Saturation 85.3 % VBG Base Excess 3.5 mEq/L Barometric Pressure 735.2 mm/Hg Sodium (136-145) mmol/L Potassium (3.5-5.1) mmol/L Chloride (98-107) mmol/L Carbon Dioxide (21-32) mmol/L Anion Gap (3-11) BUN (7-18) mg/dl Creatinine (0.6-1.2) mg/dl Est Cr Clr Drug Dosing ml/min Est GFR ( Amer) Est GFR (Non-Af Amer) BUN/Creatinine Ratio (10-20) Glucose (70-99) mg/dl Lactate (0.4-2.0) mmol/L Calcium (8.5-10.1) mg/dl Magnesium (1.8-2.4) mg/dl Total Bilirubin (0.2-1) mg/dl AST (15-37) U/L ALT (12-78) U/L Alkaline Phosphatase (45-117) U/L Troponin I (0-0.045) ng/ml C-Reactive Protein (0-0.29) mg/dl Total Protein (6.4-8.2) gm/dl Albumin (3.4-5.0) gm/dl Globulin (2.5-4.0) gm/dl Albumin/Globulin Ratio (0.9-2) Procalcitonin (0-0.5) ng/ml Urine Color Yellow Urine Appearance Clear (Clear) Urine pH 6.0 (4.5-7.5) Ur Specific [place] 1.031 H (1.000-1.030) Urine Protein 1+ H (Negative) Urine Glucose (UA) Negative (Negative) Urine Ketones 1+ H (Negative) Urine Blood 2+ H (Negative) Urine Nitrite Negative (Negative) Urine Bilirubin Negative (Negative) Urine Urobilinogen Negative (Negative) Ur Leukocyte Esterase 1+ H (Negative) Urine WBC (Auto) 1-5 (0-5) /hpf Urine RBC (Auto) >30 H (0-4) /hpf U Hyaline Cast (Auto) 1-5 (0-5) /lpf U Epithel Cells (Auto) >30 H (0-5) /lpf Urine Bacteria (Auto) Negative (Negative) Influenza Type A (PCR) Neg for Influ A (Neg) Influenza Type B (PCR) Neg for Influ B (Neg) 09/24/18 09/24/18 Range/Units 05:47 05:47 WBC 19.15 H (4.8-10.8) K/uL RBC 3.31 L (4.2-5.4) M/uL Hgb 10.0 L (12.0-16.0) g/dL Hct 31.7 L (37-47) % MCV 95.8 (80-100) fL MCH 30.2 (25-34) pg MCHC 31.5 L (32-36) g/dL RDW Std Deviation 49.5 H (36.4-46.3) fL RDW Coeff of Andrew 14.1 (11.5-14.5) % Plt Count 230 (130-400) K/uL MPV 9.2 (7.4-10.4) fL Immature Gran % (Auto) 0.4 % Neut % (Auto) 86.2 % Lymph % (Auto) 8.6 % Gentry % (Auto) 4.5 % Eos % (Auto) 0.2 % Baso % (Auto) 0.1 % Immature Gran # (Auto) 0.07 H (0.00-0.02) K/uL Neut # (Auto) 16.51 H (1.4-6.5) K/uL Lymph # (Auto) 1.65 (1.2-3.4) K/uL Gentry # (Auto) 0.86 H (0.11-0.59) K/uL Eos # (Auto) 0.04 (0-0.5) K/uL Baso # (Auto) 0.02 (0-0.2) K/uL ESR (0-21) mm/hr PT (9.0-12.0) Seconds INR (0.9-1.1) APTT (21.0-31.0) Seconds PTT Ratio VBG pH (7.36-7.41) VBG pCO2 (38-50) mmHg VBG pO2 mmHg VBG HCO3 mmol/L VBG O2 Saturation % VBG Base Excess mEq/L Barometric Pressure mm/Hg Sodium 141 (136-145) mmol/L Potassium 3.9 (3.5-5.1) mmol/L Chloride 110 H (98-107) mmol/L Carbon Dioxide 26 (21-32) mmol/L Anion Gap 5.0 (3-11) BUN 15 (7-18) mg/dl Creatinine 0.47 L (0.6-1.2) mg/dl Est Cr Clr Drug Dosing 80.1 ml/min Est GFR ( Amer) 106.6 Est GFR (Non-Af Amer) 92.0 BUN/Creatinine Ratio 32.7 H (10-20) Glucose 90 (70-99) mg/dl Lactate (0.4-2.0) mmol/L Calcium 8.6 (8.5-10.1) mg/dl Magnesium (1.8-2.4) mg/dl Total Bilirubin (0.2-1) mg/dl AST (15-37) U/L ALT (12-78) U/L Alkaline Phosphatase (45-117) U/L Troponin I (0-0.045) ng/ml C-Reactive Protein (0-0.29) mg/dl Total Protein (6.4-8.2) gm/dl Albumin (3.4-5.0) gm/dl Globulin (2.5-4.0) gm/dl Albumin/Globulin Ratio (0.9-2) Procalcitonin (0-0.5) ng/ml Urine Color Urine Appearance (Clear) Urine pH (4.5-7.5) Ur Specific [place] (1.000-1.030) Urine Protein (Negative) Urine Glucose (UA) (Negative) Urine Ketones (Negative) Urine Blood (Negative) Urine Nitrite (Negative) Urine Bilirubin (Negative) Urine Urobilinogen (Negative) Ur Leukocyte Esterase (Negative) Urine WBC (Auto) (0-5) /hpf Urine RBC (Auto) (0-4) /hpf U Hyaline Cast (Auto) (0-5) /lpf U Epithel Cells (Auto) (0-5) /lpf Urine Bacteria (Auto) (Negative) Influenza Type A (PCR) (Neg) Influenza Type B (PCR) (Neg) Imaging Data Radiologist's Impression: Radiology results as stated below per my review and the radiologist's interpretation: XR chest 1V portable CLINICAL HISTORY: 83 years-old Female presenting with Sepsis. TECHNIQUE: Portable upright AP view of the chest was obtained. COMPARISON: 02/25/2016. FINDINGS: Atherosclerosis of the aortic arch. Cardiac silhouette enlarged. Bilateral hilar prominence. Mild hyperinflation with significant heterogeneity of lung parenchyma. Patchy reticulonodular opacities with a basilar predominance. Relative radiolucency of the upper lobes. No large effusion or pneumothorax. Multiple old right rib fractures. Suspected osteopenia. Upper abdomen normal. IMPRESSION: 1. Bibasilar predominant reticulonodular opacities more prominent on the current exam. An infectious etiology is not excluded. 2. Suspected underlying chronic lung disease such as emphysema. 3. Cardiomegaly. 4. Bilateral hilar prominence may be vascular in etiology versus underlying lymphadenopathy. Electronically signed by: Santiago Bal M.D. 09/23/2018 12:29 PM ECG Data Attestation: I personally reviewed and interpreted this ECG as follows: Indication: weakness Rate (beats per minute): 112 Rhythm: sinus tachycardia Findings: no PAC, no PVC, no ST depression, no ST elevation, no acute ischemic change and no ectopy Comparison ECG Date: from (02/25/16) Change: no significant change Blood Pressure Blood Pressure Findings: Normal blood pressure MDM Narrative The patient is an 83-year-old female who presented to the emergency department for an evaluation of acute febrile illness. The patient has been complaining of generalized weakness. The patient was found to have a fever when she presented to the emergency department with her family member. Patient did complain of upper respiratory symptoms and was also found to have hypoxia. Ultimately the patient was found to have signs of pneumonia on chest x-ray. She was treated with IV fluids as well as IV antibiotics. I discussed the patient's laboratory and radiographic studies with her and her son. Given the patient's symptoms I also discussed this case with the on-call [facility] hospitalist group. They have agreed to evaluate the patient in the emergency department for further management and disposition. Impression & Plan PNA (pneumonia), Fever, Hypoxia Discharge Plan Visit Data *Final* Discharge Date/Time: 09/23/18 14:55 Chief Complaint: Dizziness Stated Complaint: DIZZY, PARKINSONISM DISEASE, HAVE NOT EATEN IN 24 ED Provider: Sarath Fluton Discharge Problem: PNA (pneumonia), Fever, Hypoxia Patient Disposition: Admitted As Inpatient Discharge Instructions Interventions: ED Discharge Assessment Last Done: 09/23/18 14:55 Discharge Problem: PNA (pneumonia) Qualifiers: Pneumonia type: due to unspecified organism Laterality: unspecified laterality Lung location: unspecified part of lung Qualified Code(s): J18.9 - Pneumonia, unspecified organism Fever Qualifiers: Fever type: unspecified Qualified Code(s): R50.9 - Fever, unspecified The scribe's documentation has been prepared under my direction and personally reviewed by me in its entirety. I confirm that the note above accurately reflects all work, treatment, procedures, and medical decision making performed by me.
[2018-09-23] MEDS: cefTRIAXone SODIUM 2,000 MG in DEXTROSE 5% 50 ML IV SCH (19:09)
[2018-09-23] MEDS: clonazePAM 0.5 MG TAB PO SCH (20:37)
[2018-09-23] MEDS: SIMVASTATIN 40 MG TAB PO SCH (20:37)
[2018-09-24 06:02] LABS: Basophils # (auto) 0.02 K/uL (0-0.2); Basophils % (auto) 0.1 %; Eosinophils # (auto) 0.04 K/uL (0-0.5); Eosinophils % (auto) 0.2 %; Hematocrit (blood only) 31.7 % (37-47); Immature Granulocytes # (auto) 0.07 K/uL (0.00-0.02); Immature Granulocytes % (auto) 0.4 %; Lymphocytes # (auto) 1.65 K/uL (1.2-3.4); Lymphocytes % (auto) 8.6 %; Mean Corpuscular Hgb Conc 31.5 g/dL (32-36); Mean Corpuscular Volume 95.8 fL (80-100); Mean Platelet Volume 9.2 fL (7.4-10.4); Monocytes # (auto) 0.86 K/uL (0.11-0.59); Monocytes % (auto) 4.5 %; Neutrophils # (auto) 16.51 K/uL (1.4-6.5); Neutrophils % (auto) 86.2 %; Platelet Count 230 K/uL (130-400); RDW Coefficient of Variation 14.1 % (11.5-14.5); RDW Standard Deviation 49.5 fL (36.4-46.3); Red Blood Count 3.31 M/uL (4.2-5.4); White Blood Count 19.15 K/uL (4.8-10.8)
[2018-09-24 06:23] LABS: BUN Creatinine Ratio 32.7 (10-20); Calcium 8.6 mg/dl (8.5-10.1); Creatinine Clr Calc Pharmacy 80.1 ml/min; Est GFR (African American) 106.6; Potassium 3.9 mmol/L (3.5-5.1)
[2018-09-24] MEDS: ASCORBIC ACID 500 MG TAB PO SCH (08:00)
[2018-09-24] MEDS: FLUOXETINE HCL 20 MG CAP PO SCH (08:00)
[2018-09-24] MEDS: CARBIDOPA/LEVODOPA 25/100MG TAB PO SCH ×4 (08:00→21:05)
[2018-09-24] MEDS: ENOXAPARIN INJ 40 MG/0.4 ML SYR SQ SCH (08:00)
[2018-09-24] MEDS: PANTOprazole 40 MG TAB PO SCH (08:00)
[2018-09-24] MEDS: ASPIRIN 81 MG ECTAB PO SCH (08:00)
[2018-09-24] MEDS: CALCIUM CARBONATE 1250MG TAB PO SCH (08:00)
[2018-09-24] MEDS: AMLODIPINE BESYLATE 5 MG TAB PO SCH (08:00)
[2018-09-24] MEDS: clonazePAM 0.5 MG TAB PO SCH ×2 (08:02→21:05)
[2018-09-24] MEDS: NSS + 20MEQ KCL 20 MEQ/1,000 ML BAG IV SCH (11:08)
--- NOTE | 2018-09-24 12:17 | Hospitalist Progress Note ---
Date of Service September 24, 2018 Assessment & Plan (1) Sepsis: - Febrile with tachycardia, leukocytosis noted on labs with source (pulmonary) - Continue IV fluids at 50 cc/hr. - Treatment for PNA as noted below. - Lactic acid level and procalcitonin both negative. (2) PNA (pneumonia): - CXR showed bibasilar predominant opacities and chronic lung disease (suspect emphysema). - Influenza by PCR was negative. - Continue Ceftriaxone/Azithromycin for empiric coverage. - IV fluids at 50 cc/hr. - Will need follow up CXR in 4-6 weeks to evaluate for resolution of PNA. (3) Leukocytosis: - WBC increased, likely related to acute infection. - Continue to monitor qAM. (4) Acute anemia: - Hemoglobin trending down in setting of IV fluid hydration. - Monitor H/H qAM. (5) Anxiety: - Continue home Klonopin BID and Prozac daily. (6) Hyperlipidemia: - Continue home Simvastatin & Aspirin 81 mg daily as prescribed. (7) HTN (hypertension): - Continue home Amlodipine as prescribed. (8) GERD (gastroesophageal reflux disease): - Continue PPI daily. (9) Parkinson disease: - Continue home Carbidopa-Levodopa as prescribed. (10) Underweight due to inadequate caloric intake: - BMI 19. - Encourage diet as tolerated (11) Dysphagia: - Speech therapy ordered. (12) DVT prophylaxis: - SCDs and Lovenox daily. Dispo: Med/surg; PT/OT ordered -- discharge to home on 09/25/18 pending improvement in symptoms and PT/OT evaluation. Supervising Physician Co-Signing Physician Notes PA Supervision Note: I did not personally see or examine the patient today, but I verified all mckinney points of ALLISON Schuster's assessment and plan with the following exceptions/additions: None Subjective Pt. is doing well overall today. She complains of feeling weak/tired. Has been slightly tachycardic, now afebrile >12 hours. Denies ongoing ear pain or drainage. Denies chest pain, SOB, cough, sore throat, runny nose. PT/OT ordered -- discharge to home likely on 09/25/18 if pt. remains afebrile and is approved for discharge to home by PT/OT recs. Review of Systems All systems reviewed & are unremarkable except as noted in HPI & below Constitutional: + fatigue and + weakness; no fever, no chills and no anorexia Respiratory: no cough and no dyspnea Cardiovascular: no chest pain, no palpitations and no edema Gastrointestinal: no abdominal pain, no nausea, no vomiting, no constipation and no diarrhea/loose stools Genitourinary (Female): no difficulty urinating Musculoskeletal: no joint pain Allergy / Immunological: no rash Physical Exam Vital Signs (Past 24 Hours): Last Vital Signs Temp 37.0 C 09/24/18 08:21 Pulse 94 H 09/24/18 08:21 Resp 18 09/24/18 08:21 BP 132/76 09/24/18 08:21 Pulse Ox 92 09/24/18 08:21 Physical Exam: General: Resting comfortably in no apparent distress; A&OX3 HEENT: NC/AT; PERRLA with EOMI; [place] conjunctiva, MMM. Neck: Supple and nontender Cardiac: RRR w/o murmurs, gallops or rubs Lungs: on room air; diminished in bilateral lung bases. Abdomen: Bowel normoactive X 4; Nontender to palpation Extremities: Warm. No edema present Neuro: No focal weakness Skin: No rash Results & Data Laboratory Results 09/24/18 09/24/18 09/23/18 Range/Units 05:47 05:47 15:03 WBC 19.15 H (4.8-10.8) K/uL RBC 3.31 L (4.2-5.4) M/uL Hgb 10.0 L (12.0-16.0) g/dL Hct 31.7 L (37-47) % MCV 95.8 (80-100) fL MCH 30.2 (25-34) pg MCHC 31.5 L (32-36) g/dL RDW Std Deviation 49.5 H (36.4-46.3) fL RDW Coeff of Andrew 14.1 (11.5-14.5) % Plt Count 230 (130-400) K/uL MPV 9.2 (7.4-10.4) fL Immature Gran % (Auto) 0.4 % Neut % (Auto) 86.2 % Lymph % (Auto) 8.6 % Reagan % (Auto) 4.5 % Eos % (Auto) 0.2 % Baso % (Auto) 0.1 % Immature Gran # (Auto) 0.07 H (0.00-0.02) K/uL Neut # (Auto) 16.51 H (1.4-6.5) K/uL Lymph # (Auto) 1.65 (1.2-3.4) K/uL Reagan # (Auto) 0.86 H (0.11-0.59) K/uL Eos # (Auto) 0.04 (0-0.5) K/uL Baso # (Auto) 0.02 (0-0.2) K/uL ESR (0-21) mm/hr PT (9.0-12.0) Seconds INR (0.9-1.1) APTT (21.0-31.0) Seconds PTT Ratio VBG pH (7.36-7.41) VBG pCO2 (38-50) mmHg VBG pO2 mmHg VBG HCO3 mmol/L VBG O2 Saturation % VBG Base Excess mEq/L Barometric Pressure mm/Hg Sodium 141 (136-145) mmol/L Potassium 3.9 (3.5-5.1) mmol/L Chloride 110 H (98-107) mmol/L Carbon Dioxide 26 (21-32) mmol/L Anion Gap 5.0 (3-11) BUN 15 (7-18) mg/dl Creatinine 0.47 L (0.6-1.2) mg/dl Est Cr Clr Drug Dosing 80.1 ml/min Est GFR ( Amer) 106.6 Est GFR (Non-Af Amer) 92.0 BUN/Creatinine Ratio 32.7 H (10-20) Glucose 90 (70-99) mg/dl Lactate (0.4-2.0) mmol/L Calcium 8.6 (8.5-10.1) mg/dl Magnesium (1.8-2.4) mg/dl Total Bilirubin (0.2-1) mg/dl AST (15-37) U/L ALT (12-78) U/L Alkaline Phosphatase (45-117) U/L Troponin I (0-0.045) ng/ml C-Reactive Protein (0-0.29) mg/dl Total Protein (6.4-8.2) gm/dl Albumin (3.4-5.0) gm/dl Globulin (2.5-4.0) gm/dl Albumin/Globulin Ratio (0.9-2) Procalcitonin (0-0.5) ng/ml Urine Color Yellow Urine Appearance Clear (Clear) Urine pH 6.0 (4.5-7.5) Ur Specific [place] 1.031 H (1.000-1.030) Urine Protein 1+ H (Negative) Urine Glucose (UA) Negative (Negative) Urine Ketones 1+ H (Negative) Urine Blood 2+ H (Negative) Urine Nitrite Negative (Negative) Urine Bilirubin Negative (Negative) Urine Urobilinogen Negative (Negative) Ur Leukocyte Esterase 1+ H (Negative) Urine WBC (Auto) 1-5 (0-5) /hpf Urine RBC (Auto) >30 H (0-4) /hpf U Hyaline Cast (Auto) 1-5 (0-5) /lpf U Epithel Cells (Auto) >30 H (0-5) /lpf Urine Bacteria (Auto) Negative (Negative) Influenza Type A (PCR) (Neg) Influenza Type B (PCR) (Neg) 09/23/18 09/23/18 09/23/18 Range/Units 12:55 12:26 12:26 WBC (4.8-10.8) K/uL RBC (4.2-5.4) M/uL Hgb (12.0-16.0) g/dL Hct (37-47) % MCV (80-100) fL MCH (25-34) pg MCHC (32-36) g/dL RDW Std Deviation (36.4-46.3) fL RDW Coeff of Andrew (11.5-14.5) % Plt Count (130-400) K/uL MPV (7.4-10.4) fL Immature Gran % (Auto) % Neut % (Auto) % Lymph % (Auto) % Reagan % (Auto) % Eos % (Auto) % Baso % (Auto) % Immature Gran # (Auto) (0.00-0.02) K/uL Neut # (Auto) (1.4-6.5) K/uL Lymph # (Auto) (1.2-3.4) K/uL Reagan # (Auto) (0.11-0.59) K/uL Eos # (Auto) (0-0.5) K/uL Baso # (Auto) (0-0.2) K/uL ESR (0-21) mm/hr PT (9.0-12.0) Seconds INR (0.9-1.1) APTT (21.0-31.0) Seconds PTT Ratio VBG pH 7.51 H (7.36-7.41) VBG pCO2 34 L (38-50) mmHg VBG pO2 47 mmHg VBG HCO3 26 mmol/L VBG O2 Saturation 85.3 % VBG Base Excess 3.5 mEq/L Barometric Pressure 735.2 mm/Hg Sodium (136-145) mmol/L Potassium (3.5-5.1) mmol/L Chloride (98-107) mmol/L Carbon Dioxide (21-32) mmol/L Anion Gap (3-11) BUN (7-18) mg/dl Creatinine (0.6-1.2) mg/dl Est Cr Clr Drug Dosing ml/min Est GFR ( Amer) Est GFR (Non-Af Amer) BUN/Creatinine Ratio (10-20) Glucose (70-99) mg/dl Lactate (0.4-2.0) mmol/L Calcium (8.5-10.1) mg/dl Magnesium (1.8-2.4) mg/dl Total Bilirubin (0.2-1) mg/dl AST (15-37) U/L ALT (12-78) U/L Alkaline Phosphatase (45-117) U/L Troponin I (0-0.045) ng/ml C-Reactive Protein (0-0.29) mg/dl Total Protein (6.4-8.2) gm/dl Albumin (3.4-5.0) gm/dl Globulin (2.5-4.0) gm/dl Albumin/Globulin Ratio (0.9-2) Procalcitonin 0.26 (0-0.5) ng/ml Urine Color Urine Appearance (Clear) Urine pH (4.5-7.5) Ur Specific [place] (1.000-1.030) Urine Protein (Negative) Urine Glucose (UA) (Negative) Urine Ketones (Negative) Urine Blood (Negative) Urine Nitrite (Negative) Urine Bilirubin (Negative) Urine Urobilinogen (Negative) Ur Leukocyte Esterase (Negative) Urine WBC (Auto) (0-5) /hpf Urine RBC (Auto) (0-4) /hpf U Hyaline Cast (Auto) (0-5) /lpf U Epithel Cells (Auto) (0-5) /lpf Urine Bacteria (Auto) (Negative) Influenza Type A (PCR) Neg for Influ A (Neg) Influenza Type B (PCR) Neg for Influ B (Neg) 09/23/18 09/23/18 09/23/18 Range/Units 12:26 12:26 12:26 WBC (4.8-10.8) K/uL RBC (4.2-5.4) M/uL Hgb (12.0-16.0) g/dL Hct (37-47) % MCV (80-100) fL MCH (25-34) pg MCHC (32-36) g/dL RDW Std Deviation (36.4-46.3) fL RDW Coeff of Andrew (11.5-14.5) % Plt Count (130-400) K/uL MPV (7.4-10.4) fL Immature Gran % (Auto) % Neut % (Auto) % Lymph % (Auto) % Reagan % (Auto) % Eos % (Auto) % Baso % (Auto) % Immature Gran # (Auto) (0.00-0.02) K/uL Neut # (Auto) (1.4-6.5) K/uL Lymph # (Auto) (1.2-3.4) K/uL Reagan # (Auto) (0.11-0.59) K/uL Eos # (Auto) (0-0.5) K/uL Baso # (Auto) (0-0.2) K/uL ESR (0-21) mm/hr PT 10.9 (9.0-12.0) Seconds INR 1.1 (0.9-1.1) APTT 26.8 (21.0-31.0) Seconds PTT Ratio 1.0 VBG pH (7.36-7.41) VBG pCO2 (38-50) mmHg VBG pO2 mmHg VBG HCO3 mmol/L VBG O2 Saturation % VBG Base Excess mEq/L Barometric Pressure mm/Hg Sodium 141 (136-145) mmol/L Potassium 3.8 (3.5-5.1) mmol/L Chloride 106 (98-107) mmol/L Carbon Dioxide 28 (21-32) mmol/L Anion Gap 8.0 (3-11) BUN 22 H (7-18) mg/dl Creatinine 0.70 (0.6-1.2) mg/dl Est Cr Clr Drug Dosing 53.8 ml/min Est GFR ( Amer) 93.5 Est GFR (Non-Af Amer) 80.7 BUN/Creatinine Ratio 30.6 H (10-20) Glucose 124 H (70-99) mg/dl Lactate 0.8 (0.4-2.0) mmol/L Calcium 9.4 (8.5-10.1) mg/dl Magnesium 2.0 (1.8-2.4) mg/dl Total Bilirubin 0.6 (0.2-1) mg/dl AST 11 L (15-37) U/L ALT 11 L (12-78) U/L Alkaline Phosphatase 98 (45-117) U/L Troponin I < 0.015 (0-0.045) ng/ml C-Reactive Protein 16.90 H (0-0.29) mg/dl Total Protein 7.5 (6.4-8.2) gm/dl Albumin 3.1 L (3.4-5.0) gm/dl Globulin 4.4 H (2.5-4.0) gm/dl Albumin/Globulin Ratio 0.7 L (0.9-2) Procalcitonin (0-0.5) ng/ml Urine Color Urine Appearance (Clear) Urine pH (4.5-7.5) Ur Specific [place] (1.000-1.030) Urine Protein (Negative) Urine Glucose (UA) (Negative) Urine Ketones (Negative) Urine Blood (Negative) Urine Nitrite (Negative) Urine Bilirubin (Negative) Urine Urobilinogen (Negative) Ur Leukocyte Esterase (Negative) Urine WBC (Auto) (0-5) /hpf Urine RBC (Auto) (0-4) /hpf U Hyaline Cast (Auto) (0-5) /lpf U Epithel Cells (Auto) (0-5) /lpf Urine Bacteria (Auto) (Negative) Influenza Type A (PCR) (Neg) Influenza Type B (PCR) (Neg) 09/23/18 09/23/18 Range/Units 12:26 12:26 WBC 25.01 H (4.8-10.8) K/uL RBC 3.71 L (4.2-5.4) M/uL Hgb 11.3 L (12.0-16.0) g/dL Hct 35.1 L (37-47) % MCV 94.6 (80-100) fL MCH 30.5 (25-34) pg MCHC 32.2 (32-36) g/dL RDW Std Deviation 48.3 H (36.4-46.3) fL RDW Coeff of Andrew 13.9 (11.5-14.5) % Plt Count 273 (130-400) K/uL MPV 9.2 (7.4-10.4) fL Immature Gran % (Auto) 0.4 % Neut % (Auto) 93.5 % Lymph % (Auto) 1.4 % Reagan % (Auto) 4.7 % Eos % (Auto) 0.0 % Baso % (Auto) 0.0 % Immature Gran # (Auto) 0.10 H (0.00-0.02) K/uL Neut # (Auto) 23.37 H (1.4-6.5) K/uL Lymph # (Auto) 0.36 L (1.2-3.4) K/uL Reagan # (Auto) 1.17 H (0.11-0.59) K/uL Eos # (Auto) 0.00 (0-0.5) K/uL Baso # (Auto) 0.01 (0-0.2) K/uL ESR 59 H (0-21) mm/hr PT (9.0-12.0) Seconds INR (0.9-1.1) APTT (21.0-31.0) Seconds PTT Ratio VBG pH (7.36-7.41) VBG pCO2 (38-50) mmHg VBG pO2 mmHg VBG HCO3 mmol/L VBG O2 Saturation % VBG Base Excess mEq/L Barometric Pressure mm/Hg Sodium (136-145) mmol/L Potassium (3.5-5.1) mmol/L Chloride (98-107) mmol/L Carbon Dioxide (21-32) mmol/L Anion Gap (3-11) BUN (7-18) mg/dl Creatinine (0.6-1.2) mg/dl Est Cr Clr Drug Dosing ml/min Est GFR ( Amer) Est GFR (Non-Af Amer) BUN/Creatinine Ratio (10-20) Glucose (70-99) mg/dl Lactate (0.4-2.0) mmol/L Calcium (8.5-10.1) mg/dl Magnesium (1.8-2.4) mg/dl Total Bilirubin (0.2-1) mg/dl AST (15-37) U/L ALT (12-78) U/L Alkaline Phosphatase (45-117) U/L Troponin I (0-0.045) ng/ml C-Reactive Protein (0-0.29) mg/dl Total Protein (6.4-8.2) gm/dl Albumin (3.4-5.0) gm/dl Globulin (2.5-4.0) gm/dl Albumin/Globulin Ratio (0.9-2) Procalcitonin (0-0.5) ng/ml Urine Color Urine Appearance (Clear) Urine pH (4.5-7.5) Ur Specific [place] (1.000-1.030) Urine Protein (Negative) Urine Glucose (UA) (Negative) Urine Ketones (Negative) Urine Blood (Negative) Urine Nitrite (Negative) Urine Bilirubin (Negative) Urine Urobilinogen (Negative) Ur Leukocyte Esterase (Negative) Urine WBC (Auto) (0-5) /hpf Urine RBC (Auto) (0-4) /hpf U Hyaline Cast (Auto) (0-5) /lpf U Epithel Cells (Auto) (0-5) /lpf Urine Bacteria (Auto) (Negative) Influenza Type A (PCR) (Neg) Influenza Type B (PCR) (Neg) (1) PNA (pneumonia) Laterality: unspecified laterality Lung location: unspecified part of lung Pneumonia type: due to unspecified organism Qualified Code(s): J18.9 - Pneumonia, unspecified organism
[2018-09-24] MEDS: AZITHROMYCIN 500 MG in DEXTROSE 5% 250 ML IV SCH (15:51)
[2018-09-24] MEDS: cefTRIAXone SODIUM 2,000 MG in DEXTROSE 5% 50 ML IV SCH (15:51)
[2018-09-24] MEDS: SIMVASTATIN 40 MG TAB PO SCH (21:05)
[2018-09-25] MEDS: NSS + 20MEQ KCL 20 MEQ/1,000 ML BAG IV SCH (07:09)
[2018-09-25 07:25] LABS: Hemoglobin 10.5 g/dL (12.0-16.0); Mean Corpuscular Hgb Conc 31.8 g/dL (32-36); Mean Corpuscular Volume 94.8 fL (80-100); Mean Platelet Volume 9.1 fL (7.4-10.4); Platelet Count 268 K/uL (130-400); RDW Standard Deviation 48.9 fL (36.4-46.3); Red Blood Count 3.48 M/uL (4.2-5.4); White Blood Count 10.53 K/uL (4.8-10.8)
[2018-09-25 07:48] LABS: BUN Creatinine Ratio 22.7 (10-20); Calcium 8.7 mg/dl (8.5-10.1); Creatinine Clr Calc Pharmacy 76.9 ml/min; Est GFR (African American) 105.2; Est GFR (Non-African American) 90.7; Magnesium 1.9 mg/dl (1.8-2.4); Potassium 3.8 mmol/L (3.5-5.1)
[2018-09-25] MEDS: CARBIDOPA/LEVODOPA 25/100MG TAB PO SCH ×2 (08:23→13:15)
[2018-09-25] MEDS: PANTOprazole 40 MG TAB PO SCH (08:23)
[2018-09-25] MEDS: AMLODIPINE BESYLATE 5 MG TAB PO SCH (08:23)
[2018-09-25] MEDS: ENOXAPARIN INJ 40 MG/0.4 ML SYR SQ SCH (08:24)
[2018-09-25] MEDS: ASCORBIC ACID 500 MG TAB PO SCH (08:24)
[2018-09-25] MEDS: ASPIRIN 81 MG ECTAB PO SCH (08:24)
[2018-09-25] MEDS: CALCIUM CARBONATE 1250MG TAB PO SCH (08:24)
[2018-09-25] MEDS: FLUOXETINE HCL 20 MG CAP PO SCH (08:24)
[2018-09-25] MEDS: clonazePAM 0.5 MG TAB PO SCH (08:27)
--- NOTE | 2018-09-25 16:23 | Discharge Summary ---
Date of Service September 25, 2018 Admission HPI Per Admitting Provider 83 y/o F c/o weakness. Pt states that she felt her usual self on 09/21. On 09/22, she was very weak and states she did not get out of bed or even change out of her nightgown all day, which is unusual for her. She states she had L ear pain and drainage that day, which is also unusual. Today, she continued to feel weak and tired but her ear pain and drainage stopped without any intervention. She states that there are several people living near her at [facility] who have the flu, so she thought she should be seen. Pt denies fever, SOB, chest pain, abd pain, n/v, LE pain or swelling. She states she is always constipated and this is the case currently. Pt states she had no appetite the last two days but ate fine on 09/21. Pt was given IVF and zosyn in the ED. She states that she feels no different at present, but that she has not been OOB to see if she feels less weak. Admission Exam Per Admitting Provider Constitutional: WD/WN, vitals as above Eyes: normal visual morgan by confrontation and + anicteric sclerae Neck: normal visual inspection and trachea midline Respiratory: normal respiratory effort; no respiratory distress Auscultation: + crackles (b/l bases); no wheezes Cardiovascular: Rate/Rhythm: regular rate and regular rhythm Gastrointestinal (Abdomen): Inspection/Auscultation: abdomen not distended Percussion/Palpation: abdomen soft; abdomen nontender Musculoskeletal: Head/Neck/Chest: normocephalic and head atraumatic negative for edema, peripheral pulses intact Skin: no rashes, warm and dry Neurologic: awake; not confused Speech / Cognition: normal speech Psychiatric: A+Ox3, euthymic affect Principal Diagnosis Community Acquired Pneumonia Discharge Exam General: Resting comfortably in no apparent distress; A&OX3 HEENT: NC/AT; PERRLA with EOMI; [place] conjunctiva, MMM. Neck: Supple and nontender Cardiac: RRR w/o murmurs, gallops or rubs Lungs: on room air; clear to auscultation throughout Abdomen: Bowel normoactive X 4; Nontender to palpation Extremities: Warm. No edema present. Non tender to light palpation over left lower extremity/knee. Neuro: No focal weakness Skin: No rash Discharge Data Allergies Allergy/AdvReac Type Severity Reaction Status Date / Time buspirone Allergy Unknown "PATIENT Verified 09/23/18 11:36 UNSURE" lisinopril Allergy Unknown "PATIENT Verified 09/23/18 11:36 UNSURE" pramipexole Allergy Unknown "PATIENT Verified 09/23/18 11:36 UNSURE" Consultations PT, OT Speech therapy Ordered Studies CXR 09/23/2018 - bibasilar infiltrates Hospital Course (1) Sepsis: Febrile with tachycardia, leukocytosis noted on labs with source (pulmonary). Treatment for PNA as noted below. Lactic acid level and procalcitonin were WNL. IV fluids were administered. (2) PNA (pneumonia): CXR showed bibasilar predominant opacities and chronic lung disease (suspect emphysema). Influenza by PCR was negative. Started Ceftriaxone/Azithromycin for empiric coverage. Converted to PO Ceftin/Doxycycline at discharge (Doxy due to upper limit of normal QTc). Will need f/u CXR in 4-6 weeks as outpatient. (3) Leukocytosis: WBC increased, likely related to acute infection. Trending down on day of discharge. (4) Acute anemia: Anemia was likely related to IV fluids, remained stable. (5) Anxiety: Continued home Klonopin BID and Prozac daily. (6) Hyperlipidemia: Continued home Simvastatin & Aspirin 81 mg daily as prescribed. (7) HTN (hypertension): Continued home Amlodipine as prescribed. (8) GERD (gastroesophageal reflux disease): Continued PPI daily. (9) Parkinson disease: Continued home Carbidopa-Levodopa as prescribed. (10) Underweight due to inadequate caloric intake: BMI 19. Encouraged diet as tolerated (11) Dysphagia: Speech therapy was consulted per patient's son request. Recommended soft bite sized diet and thin liquids with aspiration precautions, no straws. Should use chin tuck with all liquids. (12) Left leg pain: She developed pain behind left knee on 09/24/18 following session with physical therapy. Is likely a musculoskeletal injury -- does not require further work up. (13) DVT prophylaxis: SCDs and Lovenox. She was stable for discharge to home on 09/25/2018. Total Time Total Time Spent Total Time Spent (In Minutes): >30 minutes Total Time Includes: Examination of the Patient, Discharge Planning, Medication Reconciliation, Communication With Other Providers and Other Discharge Plan Discharge Items Patient Disposition: Home - Self-Care Reason For Visit: PNA Discharge Diagnosis: Pneumonia Condition: Fair Discharge Goals: Diagnostic testing, Improve disease control, Improve function, Increase independence, Improve nutritional status, Learn about illness and Prevent disease Activity: As commented below Exercise/Sports: Gradually increase as tolerated Non-emergency contact: Primary Care Provider Call non-emergency contact if: you have any medication questions, your symptoms worsen, your pain is not controlled, your pain is worsening, your pain is unusual for you, your pain is concerning for you and you have a fever Follow-up/Referrals: Santiago Ulloa MD [Primary Care Provider] - Diet: Regular Diet Texture: Dental soft (bite-sized) Addtl Provider Instructions: 1. Pneumonia * Please continue Ceftin twice daily to complete a 7 day course (end date: 09/29/18) * Please continue Doxycycline 100 mg twice daily to complete a 7 day course (end date: 09/29/18) * Prescription for new medications were sent to [facility] in [place], [place]. * Please take a probiotic daily during your course of oral antibiotics. This medication can be purchased over the counter. * You will need follow up chest imaging in 4-6 weeks. * Please follow up with your primary care provider in 1-2 weeks to discuss this hospital admission. 2. Please call your primary care provider or go to the ER if you develop the following: * Chest pain or shortness of breath. * Nausea/vomiting, diarrhea or abdominal pain. Prescriptions: New doxycycline hyclate 100 mg Capsule 100 mg PO BID Qty: 9 RF: 0 cefuroxime axetil 500 mg Tablet 500 mg PO BID Qty: 9 RF: 0 Probiotic 3 billion cell capsule 3,000 cell PO DAILY Qty: 1 RF: 0 Continued fluoxetine 40 mg capsule 40 mg PO DAILY RF: 0 clonazepam 0.5 mg tablet 0.5 mg PO BID RF: 0 omeprazole 40 mg capsule,delayed release(DR/EC) 40 mg PO DAILY RF: 0 aspirin 81 mg Tablet,Delayed Release (Dr/Ec) 81 mg PO DAILY RF: 0 simvastatin 40 mg tablet 40 mg PO HS RF: 0 amlodipine 10 mg tablet 10 mg PO DAILY RF: 0 carbidopa-levodopa 25-100 mg tablet 2 tabs PO QID RF: 0 ascorbic acid (vitamin C) [Vitamin C] 1,000 mg Tablet 1,000 mg PO DAILY RF: 0 calcium carbonate [Calcium 600] 600 mg calcium (1,500 mg) Tablet 600 mg PO DAILY RF: 0 Stand-Alone Forms: [facility] Discharge Orders: Discharge Order (Routine); Ordered 09/25/18 Ordered By: Eunice Valdes Admission Data Admit Date/Time: 09/23/18 13:52 Attending Provider: Nick Farley Admit Provider: Mandie Meléndez Primary Care Provider: Santiago Ulloa Other Providers: Mandie Meléndez Service: Medical Other Interventions: Discharge Summary Assessment (RN) Last Done: 09/25/18 14:18 Pending Studies at Discharge: Yes Studies:: Blood cultures 09/23: negative to date. DC Date/Time DO NOT enter until pt leaves facility: 09/25/18 15:42 Supervising Physician Co-Signing Physician Notes Attending Attestation & Discharge Note: Pt seen/examined, chart reviewed, discharge care plan d/w PA Eunice Valdes. I agree w/ the mckinney components of her discharge summary except - lung exam with mild bibasilar rales. 83yo female with PD, HTN - presented with b/l lower lobe community-aquired pneumonia. Symptoms and clinical picture improved with IV antibiotic therapy. Leukocytosis resolved. Seen by PT/OT - cleared to return to [facility]. Seen by speech - no significant dysphagia seen - doubt aspiration as cause of pneumonia. Will complete course of PO doxy (atypical coverage) and ceftin (typicals) post- discharge. Discharge exam: gen - flat facies due to PD; hearing impaired; NAD neck - no JVD mouth - MMM heart - RRR, s1, s2 lungs - fine bibasilar rales, no wheeze, no increased WOB abd - soft NT ext - no edema O2 sats with walking were 92% in room air on day of discharge. Nick Farley MD
[2018-09-25] MEDS ORDERED: cefUROXime axetil 500 MG TAB PO SCH (21:00)
[2018-09-25] MEDS ORDERED: DOXYCYCLINE HYCLATE 100 MG CAP PO SCH (21:00)
== END 2018-09-25 15:42 | disposition home or self-care (01) | DRG 871 ==
LOC: ED 11:06 → 2W 13:52 → SUATTDRO 13:52 → 2W 14:55

== ENCOUNTER 2020-12-29 09:55 | Observation (INO) ==
[2020-12-29] MEDS ORDERED: OPTIRAY 320 125ml IV ONE (10:25)
--- NOTE | 2020-12-29 10:29 | Emergency Department Note ---
History of Present Illness General Chief complaint: Neuro Symptoms/Deficit Stated complaint: LEFT SIDED WEAKNESS,DIZZY,CANT REMEMBER THINGS Time Seen by Provider: 12/29/20 10:10 Source: patient History of Present Illness Provider complaint: Left arm weakness Onset (ago): hour(s) Location: upper extremity and left Pain Consistency: + constant Quality: + other (Weak and difficult to control) Relieved By: + none Associated symptoms: + cough (Chronic cough unchanged); no chest pain, no fe jorge alberto/chills, no headaches, no nausea/vomiting and no shortness of breath This is an 85-year-old female with a history of parkinsonism presenting with left arm weakness. She started having symptoms when she woke up today at 5:30 AM. She went to bed at 12 midnight and did not have any symptoms then. She stated that she had difficulty controlling the arm and it felt very weak. Her symptoms are constant. She denies any associated numbness. She has never had a stroke before. She denies weakness in her legs but states that she has had some trouble walking which seems more pronounced than due to her Parkinson's. She denies any headache, fever, cold symptoms, chest pain, shortness of breath, abdominal pain, vomiting, diarrhea or urinary symptoms. She does have a chronic cough which is unchanged. She denies any difficulty with her speech or swallowing or vision. She does state that she has memory loss which is a chronic issue for her. Home Medications Medication Instructions Recorded Confirmed Type clonazepam 0.5 mg tablet 0.25 mg PO BID #30 tab 02/07/19 12/29/20 History omeprazole 40 mg capsule,delayed 40 mg PO QAM cap 02/07/19 12/29/20 History release simvastatin 40 mg tablet 40 mg PO HS tab 02/07/19 12/29/20 History amlodipine 10 mg tablet 10 mg PO QAM #30 tab 02/14/19 12/29/20 History fluoxetine 40 mg capsule 40 mg PO QAM 09/22/20 12/29/20 History ascorbic acid (vitamin C) [Vitamin 1,000 mg PO QAM 12/29/20 12/29/20 History C] aspirin [Aspirin Low Dose] 81 mg PO QAM 12/29/20 12/29/20 History calcium carbonate [Calcium 600] 600 mg PO BID 12/29/20 12/29/20 History carbidopa-levodopa [Sinemet] 4 tab PO QID 12/29/20 12/29/20 History triamcinolone acetonide 1 applic TOPICAL 2XWK PRN 12/29/20 12/29/20 History Allergies Allergy/AdvReac Type Severity Reaction Status Date / Time buspirone Allergy Unknown unknown - Verified 12/29/20 11:55 pt not sure lisinopril Allergy Unknown unknown - Verified 12/29/20 11:55 pt not sure morphine Allergy Unknown unknown, Verified 12/29/20 11:55 pt not sure pramipexole Allergy Unknown unknown, Verified 12/29/20 11:55 pt not sure Past Med/Surg History Medical History (Updated 12/29/20 @ 16:01 by Agustin Norris MD) Anemia Anxiety Chronic back pain Family history of reaction to anesthesia mother - n/v GERD (gastroesophageal reflux disease) Hard of hearing History of colon polyps QUESTIONABLE HX OF , PT NOT SURE HTN (hypertension) Hyperlipidemia Parkinson disease Surgical History History of cholecystectomy History of colonoscopy History of tonsillectomy Family History Father Family history of bleeding disorder Hearing loss Heart disease Mother Cancer Other No family history of bleeding disorder Denies family history of Myocardial infarction Stroke Social History Smoking Status: Never smoker Second Hand Exposure: No; Do You Dip or Chew Tobacco: No; Tobacco Cessation Education Requested by Patient: No Hx Alcohol Use: No Hx Substance Use: No Preferred Language: Kazakh Communication Ability: Effective [employer] Supervisor Required: No Beliefs That Will Affect Care: None marital status: Current Living Situation: Personal Care Facility Current Living Situation Comment: [facility] How many Children do You have: 2 Other Information That Helps Us Care for You: No Feels Safe at Home: Yes Safety Concerns: Feels Safe At This Time Assistive Devices: Walker Review of Systems See HPI for pertinent positives & negatives. and A total of 10 systems reviewed and were otherwise negative Physical Exam Vital Signs Vital Signs - 24 hr 12/29/20 10:00 12/29/20 10:07 12/29/20 10:35 Temperature 36.8 C Temperature Source Temporal Artery Scan Pulse Rate 84 85 84 Pulse Rate [Left Finger] Pulse Rate from SpO2 Sensor 85 84 Pulse Rhythm [Left Finger] Pulse Strength [Left Finger] Respiratory Rate 18 19 20 Respiratory Effort / Characteristics Respiratory Depth Respiratory Pattern Blood Pressure 163/80 H 170/95 H Blood Pressure [Right Arm] Blood Pressure Mean 107 120 Blood Pressure Mean [Right Arm] Blood Pressure Position Sitting Blood Pressure Position [Right Arm] Pulse Oximetry 95 94 92 Oxygen Delivery Method Room Air Sepsis Recent Fever Within 48 Hours No Sepsis New/Unexplained Change in Mental Status No Sepsis Action Taken by Nursing No Action Required 12/29/20 11:00 12/29/20 11:24 12/29/20 11:30 Temperature Temperature Source Pulse Rate 74 84 Pulse Rate [Left Finger] 96 H Pulse Rate from SpO2 Sensor 84 Pulse Rhythm [Left Finger] Regular Pulse Strength [Left Finger] Normal Respiratory Rate 20 20 20 Respiratory Effort / Characteristics Non-Labored Spontaneous Respiratory Depth Normal Respiratory Pattern Regular Blood Pressure 173/86 H 166/81 H Blood Pressure [Right Arm] 163/91 H Blood Pressure Mean 115 109 Blood Pressure Mean [Right Arm] 115 Blood Pressure Position Blood Pressure Position [Right Arm] Lying Pulse Oximetry 93 94 Oxygen Delivery Method Room Air Sepsis Recent Fever Within 48 Hours Sepsis New/Unexplained Change in Mental Status Sepsis Action Taken by Nursing 12/29/20 12:00 12/29/20 12:30 Temperature Temperature Source Pulse Rate 84 83 Pulse Rate [Left Finger] Pulse Rate from SpO2 Sensor 85 84 Pulse Rhythm [Left Finger] Pulse Strength [Left Finger] Respiratory Rate 21 20 Respiratory Effort / Characteristics Respiratory Depth Respiratory Pattern Blood Pressure 160/87 H 149/67 H Blood Pressure [Right Arm] Blood Pressure Mean 111 94 Blood Pressure Mean [Right Arm] Blood Pressure Position Blood Pressure Position [Right Arm] Pulse Oximetry 92 93 Oxygen Delivery Method Sepsis Recent Fever Within 48 Hours Sepsis New/Unexplained Change in Mental Status Sepsis Action Taken by Nursing Constitutional: Vital signs reviewed. Eyes: Pupils are equal round reactive to light. Conjunctiva are noninjected. ENT: Pharynx is clear without erythema or exudate. Mucous membranes are moist. Neck supple without meningeal signs. Respiratory: Clear to auscultation bilaterally. Breath sounds are equal bilaterally. Cardiovascular: Regular rate and rhythm. No rubs or gallops. GI: Soft, nondistended and nontender. Bowel sounds are present. Musculoskeletal: No peripheral edema. No lower extremity tenderness. Integumentary: No cyanosis. or jaundice. Neurologic: The patient is awake and alert. Cranial nerves II-XII are intact, except very hard of hearing. Motor is 5 out of 5 all extremities except the left upper extremity which is 4 out of 5. Sensation is intact to light touch all extremities. Normal speech. Slight left pronator drift. No limb ataxia. Psychiatric: Normal affect. Course Administered Medications Carbidopa/Levodopa (Carbidopa/Levodopa 25/100mg Tab) 4 tab PO QID [facility] Stop: 01/28/21 14:44 Last Admin: 12/29/20 15:19 Dose: 4 tab Documented by: [id number] Clopidogrel Bisulfate (Clopidogrel Bisulfate 75 Mg Tab) 75 mg PO QAM [facility] Stop: 01/28/21 14:44 Last Admin: 12/29/20 15:19 Dose: 75 mg Documented by: [id number] Miscellaneous (Triamcinolone Acetonide Ointment: Order Awaiting Action) 1 ea N/A QS [facility] Stop: 01/28/21 15:59 Last Admin: 12/29/20 15:15 Dose: Not Given Documented by: [id number] Discontinued Medications Aspirin (Aspirin Chew 324 Mg) 243 mg PO NOW STA Stop: 12/29/20 11:50 Last Admin: 12/29/20 11:59 Dose: 243 mg Documented by: [id number] Ioversol (Optiray 320 125ml) 120 ml IV ONCE ONE Stop: 12/29/20 10:26 Last Admin: 12/29/20 10:25 Dose: 120 ml Documented by: [id number] Medical Decision Making Differential Diagnosis TIA, CVA, intracranial mass, intracranial hemorrhage, metabolic derangement Medical Records Attestation: I reviewed the patient's medical records. I did perform a limited focused review of portions of the patient's old chart on the electronic medical record. The patient was seen by neurology for her Parkinson's disease in September of this year. Home Medications Current Medication List: was personally reviewed by me Laboratory Data Attestation: I reviewed the patient's lab results. Result diagrams: 12/29/20 10:17 12/29/20 10:17 Lab Results 12/29/20 12/29/20 12/29/20 Range/Units 10:17 10:17 10:17 WBC 5.91 (4.8-10.8) K/uL RBC 4.12 L (4.2-5.4) M/uL Hgb 11.4 L (12.0-16.0) g/dL Hct 38.0 (37-47) % MCV 92.2 (80-100) fL MCH 27.7 (25-34) pg MCHC 30.0 L (32-36) g/dL RDW Std Deviation 53.3 H (36.4-46.3) fL RDW Coeff of Andrew 15.7 H (11.5-14.5) % Plt Count 405 H (130-400) K/uL MPV 8.9 (7.4-10.4) fL Immature Gran % (Auto) 0.3 % Neut % (Auto) 71.5 % Lymph % (Auto) 20.1 % Tucker % (Auto) 5.9 % Eos % (Auto) 2.0 % Baso % (Auto) 0.2 % Neut # (Auto) 4.22 (1.4-6.5) K/uL Lymph # (Auto) 1.19 L (1.2-3.4) K/uL Tucker # (Auto) 0.35 (0.11-0.59) K/uL Eos # (Auto) 0.12 (0-0.5) K/uL Baso # (Auto) 0.01 (0-0.2) K/uL Immature Gran # (Auto) 0.02 (0.00-0.02) K/uL PT 9.8 (9.0-12.0) Seconds INR 1.0 (0.9-1.1) APTT 24.3 (21.0-31.0) Seconds PTT Ratio 0.9 Sodium 140 (136-145) mmol/L Potassium 3.9 (3.5-5.1) mmol/L Chloride 106 (98-107) mmol/L Carbon Dioxide 30 (21-32) mmol/L Anion Gap 4.0 (3-11) BUN 14 (7-18) mg/dl Creatinine 0.51 L (0.6-1.2) mg/dl Est Cr Clr Drug Dosing 69.5 ml/min Est GFR ( Amer) 102.3 ml/min Est GFR (Non-Af Amer) 88.3 ml/min BUN/Creatinine Ratio 27.4 H (10-20) Glucose 98 (70-99) mg/dl POC Glucose (70-99) mg/dl Calcium 9.8 (8.5-10.1) mg/dl Magnesium 2.2 (1.8-2.4) mg/dl Total Bilirubin 0.4 (0.2-1) mg/dl AST 14 L (15-37) U/L ALT 13 (12-78) U/L Alkaline Phosphatase 110 (45-117) U/L Troponin I < 0.015 (0-0.045) ng/ml Total Protein 8.2 (6.4-8.2) gm/dl Albumin 3.5 (3.4-5.0) gm/dl Globulin 4.7 H (2.5-4.0) gm/dl Albumin/Globulin Ratio 0.7 L (0.9-2) 12/29/20 Range/Units 10:42 WBC (4.8-10.8) K/uL RBC (4.2-5.4) M/uL Hgb (12.0-16.0) g/dL Hct (37-47) % MCV (80-100) fL MCH (25-34) pg MCHC (32-36) g/dL RDW Std Deviation (36.4-46.3) fL RDW Coeff of Andrew (11.5-14.5) % Plt Count (130-400) K/uL MPV (7.4-10.4) fL Immature Gran % (Auto) % Neut % (Auto) % Lymph % (Auto) % Tucker % (Auto) % Eos % (Auto) % Baso % (Auto) % Neut # (Auto) (1.4-6.5) K/uL Lymph # (Auto) (1.2-3.4) K/uL Tucker # (Auto) (0.11-0.59) K/uL Eos # (Auto) (0-0.5) K/uL Baso # (Auto) (0-0.2) K/uL Immature Gran # (Auto) (0.00-0.02) K/uL PT (9.0-12.0) Seconds INR (0.9-1.1) APTT (21.0-31.0) Seconds PTT Ratio Sodium (136-145) mmol/L Potassium (3.5-5.1) mmol/L Chloride (98-107) mmol/L Carbon Dioxide (21-32) mmol/L Anion Gap (3-11) BUN (7-18) mg/dl Creatinine (0.6-1.2) mg/dl Est Cr Clr Drug Dosing ml/min Est GFR ( Amer) ml/min Est GFR (Non-Af Amer) ml/min BUN/Creatinine Ratio (10-20) Glucose (70-99) mg/dl POC Glucose 100 H (70-99) mg/dl Calcium (8.5-10.1) mg/dl Magnesium (1.8-2.4) mg/dl Total Bilirubin (0.2-1) mg/dl AST (15-37) U/L ALT (12-78) U/L Alkaline Phosphatase (45-117) U/L Troponin I (0-0.045) ng/ml Total Protein (6.4-8.2) gm/dl Albumin (3.4-5.0) gm/dl Globulin (2.5-4.0) gm/dl Albumin/Globulin Ratio (0.9-2) Imaging Data Radiologist's Impression: Chest X-Ray 12/29/20 10:20 XR chest 1V portable HISTORY: 85 years-old Female Stroke Like Symptoms acute strokelike symptoms COMPARISON: Chest CT 01/30/2019, chest radiograph 01/10/2019, CTA head and neck 12/29/2020. TECHNIQUE: Portable upright AP view of the chest FINDINGS: Cardiac silhouette is enlarged. Calcified plaque of the thoracic aorta. Chronic reticular nodular opacities, right greater than left. Suggested emphysema. No pneumothorax, large pleural effusion or lobar airspace consolidation. Degenerative changes of the shoulders and spine. IMPRESSION: 1. Cardiomegaly without overt pulmonary edema. 2. Chronic right greater than left reticular nodular opacities compatible with a nonspecific infectious or inflammatory pneumonitis. ACT 112: Negative or not required by law. The above report was generated using voice recognition software. It may contain grammatical, syntax or spelling errors. Electronically signed by: Edin Bullock M.D. 12/29/2020 10:[address] 12/29/20 10:20 CT OF THE HEAD WITHOUT CONTRAST CLINICAL HISTORY: Stroke Like Symptoms COMPARISON STUDY: Head CT February 25, 2016. TECHNIQUE: Helical axial images of the head were obtained without IV contrast. Automated exposure control was utilized for the study. A dose lowering technique was utilized adhering to the principles of ALARA. FINDINGS: No acute intracranial hemorrhage, midline shift or mass effect is present. Ventricular system is unremarkable. Basal cisterns are patent. There are no extra-axial collections. White matter hypodensities to small vessel disease. There are no findings to suggest acute dural sinus thrombosis or acute territorial infarct. Appearance of the brain is unchanged. Right mastoid air cells are partially opacified. This is unchanged. IMPRESSION: No acute intracranial findings. ACT 112: Negative or not required by law. Electronically signed by: Shane Kauffman M.D. 12/29/2020 10:51 AM Head CTA 12/29/20 10:20 CT angio head w con, CT angio neck with con CLINICAL HISTORY: 85 years-old Female with Stroke Like Symptoms. Acute strokelike symptoms COMPARISON STUDY: Head CT of same day TECHNIQUE: Unenhanced axial CT scan of the brain is performed. Subsequently, following the IV administration of 120 cc of Optiray, CT angiogram of the head and neck was performed from the aortic arch to the skull apex. Images are reviewed in the axial, sagittal, and coronal planes. 3-D MIPS images are created and assessed. IV contrast was administered without complication. All measurements were obtained according to NASCET criteria. A dose lowering technique was utilized adhering to the principles of ALARA. CT DOSE: 895.71 mGy.cm FINDINGS: The imaged opacified pulmonary tree all tree is unremarkable. Extensive atherosclerotic plaque of the thoracic aorta. Patency of the innominate and imaged subclavian arteries. Common carotid arteries are widely patent. Mild atherosclerotic plaque of the carotid bulbs and proximal cervical segments of the internal carotid arteries without significant stenosis. Distal cervical segment ICA tortuosity. Saccular outpouching involving the medial wall of the cavernous segment left ICA on image 107 of series 5 measures 5 x 3 x 5 mm in and AP, transverse and craniocaudal dimensions. Atherosclerotic plaque of the clinoid and supraclinoid segments. The middle and anterior cerebral arteries are patent. Codominant and widely patent vertebral arteries. Atherosclerotic plaque at the origin of the right vertebral artery without significant stenosis. Fenestrated basilar artery. Basilar and posterior cerebral arteries are patent. Mild multifocal luminal narrowing of the left posterior cerebral artery. No dissection, high-grade stenosis or arterial occlusion identified. Cerebral venous sinuses are patent. There is no abnormal intracranial enhancement. Age-related involutional changes with chronic microvascular ischemic disease. Bilateral mucus plugging with patchy partially imaged nodular consolidative opacities of the right upper lobe. Mild tracheobronchial secretions with layering secretions within the esophagus. Hypodense 1.7 cm right-sided thyroid nodule. No adenopathy. Degenerative changes of the cervical spine. IMPRESSION: 1. 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 No evidence of rupture. 2. Otherwise unremarkable CTA of the head and neck. 3. Biapical mucous plugging with partially imaged patchy nodular and consolidative right upper lobe opacities suggestive of an infectious or inflammatory bronchiolitis with pneumonitis. ACT 112: Negative or not required by law. The above report was generated using voice recognition software. It may contain grammatical, syntax or spelling errors. Electronically signed by: Edin Bullock M.D. 12/29/2020 10:54 AM Neck CTA 12/29/20 10:20 CT angio head w con, CT angio neck with con CLINICAL HISTORY: 85 years-old Female with Stroke Like Symptoms. Acute stroke like symptoms COMPARISON STUDY: Head CT of same day TECHNIQUE: Unenhanced axial CT scan of the brain is performed. Subsequently, following the IV administration of 120 cc of Optiray, CT angiogram of the head and neck was performed from the aortic arch to the skull apex. Images are reviewed in the axial, sagittal, and coronal planes. 3-D MIPS images are created and assessed. IV contrast was administered without complication. All measurements were obtained according to NASCET criteria. A dose lowering technique was utilized adhering to the principles of ALARA. CT DOSE: 895.71 mGy.cm FINDINGS: The imaged opacified pulmonary tree all tree is unremarkable. Extensive atherosclerotic plaque of the thoracic aorta. Patency of the innominate and imaged subclavian arteries. Common carotid arteries are widely patent. Mild atherosclerotic plaque of the carotid bulbs and proximal cervical segments of the internal carotid arteries without significant stenosis. Distal cervical segment ICA tortuosity. Saccular outpouching involving the medial wall of the cavernous segment left ICA on image 107 of series 5 measures 5 x 3 x 5 mm in and AP, transverse and craniocaudal dimensions. Atherosclerotic plaque of the clinoid and supraclinoid segments. The middle and anterior cerebral arteries are patent. Codominant and widely patent vertebral arteries. Atherosclerotic plaque at the origin of the right vertebral artery without significant stenosis. Fenestrated basilar artery. Basilar and posterior cerebral arteries are patent. Mild multifocal luminal narrowing of the left posterior cerebral artery. No dissection, high-grade stenosis or arterial occlusion identified. Cerebral venous sinuses are patent. There is no abnormal intracranial enhancement. Age-related involutional changes with chronic microvascular ischemic disease. Bilateral mucus plugging with patchy partially imaged nodular consolidative opacities of the right upper lobe. Mild tracheobronchial secretions with layering secretions within the esophagus. Hypodense 1.7 cm right-sided thyroid nodule. No adenopathy. Degenerative changes of the cervical spine. IMPRESSION: 1. 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 No evidence of rupture. 2. Otherwise unremarkable CTA of the head and neck. 3. Biapical mucous plugging with partially imaged patchy nodular and consolidative right upper lobe opacities suggestive of an infectious or inflammatory bronchiolitis with pneumonitis. ACT 112: Negative or not required by law. The above report was generated using voice recognition software. It may contain grammatical, syntax or spelling errors. Electronically signed by: Edin Bullock M.D. 12/29/2020 10:54 AM [facility] Narrative I did evaluate the patient as noted above. The patient is presenting with strokelike symptoms with left arm weakness. She has an NIH stroke scale of 1. She is not a candidate for IV TPA as her last known well was at midnight. I did call a stroke alert. I did talk to the stroke neurologist [facility] who stated that we could consult her if the CTA was positive for thrombus. IV access was established. I did order a stat CT of the head and CT angiogram of the head and neck. I did review the images myself as well as the radiology report as described above. There is no evidence of acute stroke. She does have an incidental finding of a 5 mm aneurysm in the left ICA. No bleeding or thrombus is noted. There also is concern for mucous plugging in the bilateral apices with pneumonitis. I did place an order for continuous cardiac monitoring. The monitor showed normal sinus rhythm at a rate of 80 bpm. I did order and personally review the patient's 12-lead EKG as described above. She has no acute ischemic changes. I did order and personally reviewed the images of the patient's chest x-ray as described above. This showed a possible pneumonitis. I did order and review the patient's blood work as noted in the electronic medical record. CBC demonstrates a hemoglobin 11.4 and a platelet count of 405. Electrolytes are unremarkable. Troponin is negative. Covid testing is negative. I did reassess the patient. I did discuss the test results with the patient and her son. They state that her cough has been chronic for years and is unchanged. Is unclear if she has an acute infection at this time. I did treat her with aspirin. I did recommend hospitalization for further care and evaluation and MRI of the brain. I did discuss the case with the hospitalist and block and case maker. Impression & Plan Left arm weakness, Anemia, Mucus plugging of bronchi Discharge Plan Visit Data Chief Complaint: Neuro Symptoms/Deficit Stated Complaint: LEFT SIDED WEAKNESS,DIZZY,CANT REMEMBER THINGS ED Provider: Agustin Norris Discharge Problem: Left arm weakness, Anemia, Mucus plugging of bronchi Patient Disposition: Admitted As Inpatient Discharge Instructions Interventions: ED Discharge Assessment Last Done: 12/29/20 13:35
[2020-12-29 10:31] LABS: Basophils # (auto) 0.01 K/uL (0-0.2); Basophils % (auto) 0.2 %; Eosinophils # (auto) 0.12 K/uL (0-0.5); Hemoglobin 11.4 g/dL (12.0-16.0); Immature Granulocytes # (auto) 0.02 K/uL (0.00-0.02); Immature Granulocytes % (auto) 0.3 %; Lymphocytes # (auto) 1.19 K/uL (1.2-3.4); Lymphocytes % (auto) 20.1 %; Mean Corpuscular Hemoglobin 27.7 pg (25-34); Mean Corpuscular Volume 92.2 fL (80-100); Mean Platelet Volume 8.9 fL (7.4-10.4); Monocytes # (auto) 0.35 K/uL (0.11-0.59); Monocytes % (auto) 5.9 %; Neutrophils # (auto) 4.22 K/uL (1.4-6.5); Neutrophils % (auto) 71.5 %; Platelet Count 405 K/uL (130-400); RDW Coefficient of Variation 15.7 % (11.5-14.5); RDW Standard Deviation 53.3 fL (36.4-46.3); Red Blood Count 4.12 M/uL (4.2-5.4); White Blood Count 5.91 K/uL (4.8-10.8)
[2020-12-29 10:42] LABS: Partial Thromboplastin Ratio 0.9; Partial Thromboplastin Time 24.3 Seconds (21.0-31.0); Prothrombin Time 9.8 Seconds (9.0-12.0)
--- NOTE | 2020-12-29 10:52 | CT Scan Report ---
CT OF THE HEAD WITHOUT CONTRAST CLINICAL HISTORY: Stroke Like Symptoms COMPARISON STUDY: Head CT February 25, 2016. TECHNIQUE: Helical axial images of the head were obtained without IV contrast. Automated exposure con trol was utilized for the study. A dose lowering technique was utilized adhering to the principles o f ALARA. FINDINGS: No acute intracranial hemorrhage, midline shift or mass effect is present. Ventricular syst em is unremarkable. Basal cisterns are patent. There are no extra-axial collections. White matter hyp odensities to small vessel disease. There are no findings to suggest acute dural sinus thrombosis or acute territorial infarct. Appearance of the brain is unchanged. Right mastoid air cells are partiall y opacified. This is unchanged. IMPRESSION: No acute intracranial findings. ACT 112: Negative or not required by law. Electronically signed by: Shane Kauffman M.D. 12/29/2020 10:51 AM
--- NOTE | 2020-12-29 10:56 | CT Scan Report ---
CT angio head w con, CT angio neck with con CLINICAL HISTORY: 85 years-old Female with Stroke Like Symptoms. Acute strokelike symptoms COMPARISON STUDY: Head CT of same day TECHNIQUE: Unenhanced axial CT scan of the brain is performed. Subsequently, following the IV adminis tration of 120 cc of Optiray, CT angiogram of the head and neck was performed from the aortic arch to the skull apex. Images are reviewed in the axial, sagittal, and coronal planes. 3-D MIPS images are created and assessed. IV contrast was administered without complication. All measurements were obtain ed according to NASCET criteria. A dose lowering technique was utilized adhering to the principles of ALARA. CT DOSE: 895.71 mGy.cm FINDINGS: The imaged opacified pulmonary tree all tree is unremarkable. Extensive atherosclerotic plaque of the thoracic aorta. Patency of the innominate and imaged subclavian arteries. Common carotid arteries ar e widely patent. Mild atherosclerotic plaque of the carotid bulbs and proximal cervical segments of t he internal carotid arteries without significant stenosis. Distal cervical segment ICA tortuosity. Sa ccular outpouching involving the medial wall of the cavernous segment left ICA on image 107 of series 5 measures 5 x 3 x 5 mm in and AP, transverse and craniocaudal dimensions. Atherosclerotic plaque of the clinoid and supraclinoid segments. The middle and anterior cerebral arteries are patent. Codomin ant and widely patent vertebral arteries. Atherosclerotic plaque at the origin of the right vertebral artery without significant stenosis. Fenestrated basilar artery. Basilar and posterior cerebral sander [place] are patent. Mild multifocal luminal narrowing of the left posterior cerebral artery. No dissecti on, high-grade stenosis or arterial occlusion identified. Cerebral venous sinuses are patent. There i s no abnormal intracranial enhancement. Age-related involutional changes with chronic microvascular ischemic disease. Bilateral mucus pluggin g with patchy partially imaged nodular consolidative opacities of the right upper lobe. Mild tracheob ronchial secretions with layering secretions within the esophagus. Hypodense 1.7 cm right-sided thyro id nodule. No adenopathy. Degenerative changes of the cervical spine. IMPRESSION: 1. 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 No evidence of rupture. 2. Otherwise unremarkable CTA of the head and neck. 3. Biapical mucous plugging with partially imaged patchy nodular and consolidative right upper lobe o pacities suggestive of an infectious or inflammatory bronchiolitis with pneumonitis. ACT 112: Negative or not required by law. The above report was generated using voice recognition software. It may contain grammatical, syntax o r spelling errors. Electronically signed by: Edin Bullock M.D. 12/29/2020 10:54 AM
[2020-12-29 10:59] LABS: Alanine Aminotransferase 13 U/L (12-78); Albumin Globulin Ratio 0.7 (0.9-2); Albumin Level 3.5 gm/dl (3.4-5.0); Alkaline Phosphatase 110 U/L (45-117); Aspartate Aminotransferase 14 U/L (15-37); BUN Creatinine Ratio 27.4 (10-20); Bilirubin,Total 0.4 mg/dl (0.2-1); Blood Urea Nitrogen 14 mg/dl (7-18); Calcium 9.8 mg/dl (8.5-10.1); Carbon Dioxide 30 mmol/L (21-32); Chloride 106 mmol/L (98-107); Creatinine Clr Calc Pharmacy 69.5 ml/min; Est GFR (African American) 102.3 ml/min; Est GFR (Non-African American) 88.3 ml/min; Globulin 4.7 gm/dl (2.5-4.0); Glucose 98 mg/dl (70-99); Magnesium 2.2 mg/dl (1.8-2.4); Potassium 3.9 mmol/L (3.5-5.1); Sodium 140 mmol/L (136-145); Total Protein 8.2 gm/dl (6.4-8.2); Troponin I < 0.015 ng/ml (0-0.045)
--- NOTE | 2020-12-29 11:00 | XRay Report ---
XR chest 1V portable HISTORY: 85 years-old Female Stroke Like Symptoms acute strokelike symptoms COMPARISON: Chest CT 01/30/2019, chest radiograph 01/10/2019, CTA head and neck 12/29/2020. TECHNIQUE: Portable upright AP view of the chest FINDINGS: Cardiac silhouette is enlarged. Calcified plaque of the thoracic aorta. Chronic reticular nodular opa cities, right greater than left. Suggested emphysema. No pneumothorax, large pleural effusion or loba r airspace consolidation. Degenerative changes of the shoulders and spine. IMPRESSION: 1. Cardiomegaly without overt pulmonary edema. 2. Chronic right greater than left reticular nodular opacities compatible with a nonspecific infectio us or inflammatory pneumonitis. ACT 112: Negative or not required by law. The above report was generated using voice recognition software. It may contain grammatical, syntax o r spelling errors. Electronically signed by: Edin Bullock M.D. 12/29/2020 10:59 AM
[2020-12-29] MEDS ORDERED: ASPIRIN CHEW 324 MG PO STA (11:49)
--- NOTE | 2020-12-29 13:14 | History & Physical Report ---
Date of Service December 29, 2020 Assessment & Plan (1) CVA (cerebral vascular accident): CVA vs. 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 No evidence of rupture. - Discussed case with Dr. Jackson as asymptomatic- follow size and symptoms - If acute change repeat imaging evaluation (3) Parkinson disease: Continue carbidopa-levodopa - symptoms seem well controlled on exam and patient reports no declination (4) HTN (hypertension): Goal <140 as outpatient - Allow permissive HTN- pending MRI - Continue antihypertensives tomorrow - should trend 24-48 hours for assessment of control through the day with her aneurysm (5) Hypercholesterolemia: Lipid panel in the morning - continue Zocor 40 mg (6) Depression with anxiety: No acute needs, continue home agents (7) Dysphagia: Reports as chronic - pooling of secretions in esophagus and right lobe - not infectious appearing at this time without and no effusion - no indication for treatment of likely pneumonitis- CXR in morning - [employer] evaluate with CVA protocol (8) Lichen sclerosus et atrophicus: Seen by gyne in 12/14/20- continue clobetasol - area was snipped History of Present Illness Chief Complaint: CVA vs TIA Primary Care Provider: Santiago Ulloa MD 85 YOF with past medical history of HTN, HLD, osteopenia, idiopathic Parkinson's, chronic mastoiditis, hearing loss, GERD, underweight. Patient comes in today for awakening at 0530 and noticing that her left arm was weak and uncoordinated. She reports that she could not raise her arm or get it to do anything. She was brought to the [facility] via EMS. Her last known well she reports was at bedtime around midnight last night. In the [facility] she had a CT scan of the head performed that revealed no acute process with chronic right mastoiditis. CTA of the head and neck performed which revealed an incidental saccular aneurysm that involves the medial cavernous segment of the left ICA 5x3x5 without rupture. NIHSS of 1. Patient was not a t-PA candidate secondary to time last known well. Her symptoms are improving but remains with some LUE ataxia and overshoot with finger to nose. Patient will be admitted for CVA vs. TIA workup. Patient denies any headaches, visual changes, or facial pain or hearing changes. Allergies Allergy/AdvReac Type Severity Reaction Status Date / Time buspirone Allergy Unknown unknown - Verified 12/29/20 11:55 pt not sure lisinopril Allergy Unknown unknown - Verified 12/29/20 11:55 pt not sure morphine Allergy Unknown unknown, Verified 12/29/20 11:55 pt not sure pramipexole Allergy Unknown unknown, Verified 12/29/20 11:55 pt not sure Home Medications Medication Instructions Recorded Confirmed Type clonazepam 0.5 mg tablet 0.25 mg PO BID #30 tab 02/07/19 12/29/20 History omeprazole 40 mg capsule,delayed 40 mg PO QAM cap 02/07/19 12/29/20 History release simvastatin 40 mg tablet 40 mg PO HS tab 02/07/19 12/29/20 History amlodipine 10 mg tablet (Norvasc) 10 mg PO QAM #30 tab 02/14/19 12/29/20 History fluoxetine 40 mg capsule (Prozac) 40 mg PO QAM 09/22/20 12/29/20 History ascorbic acid (vitamin C) 1,000 mg 1,000 mg PO QAM 12/29/20 12/29/20 History tablet (Vitamin C) aspirin 81 mg tablet,delayed 81 mg PO QAM 12/29/20 12/29/20 History release (Aspirin Low Dose) calcium carbonate 600 mg calcium 600 mg PO BID 12/29/20 12/29/20 History (1,500 mg) tablet (Calcium) carbidopa 25 mg-levodopa 100 mg 4 tab PO QID 12/29/20 12/29/20 History tablet (Sinemet) triamcinolone acetonide 0.05 % 1 applic TOPICAL 2XWK PRN 12/29/20 12/29/20 History topical ointment Past Med/Surg History Medical History Anemia Anxiety Chronic back pain Family history of reaction to anesthesia mother - n/v GERD (gastroesophageal reflux disease) Hard of hearing History of colon polyps QUESTIONABLE HX OF , PT NOT SURE HTN (hypertension) Hyperlipidemia Parkinson disease Surgical History History of cholecystectomy History of colonoscopy History of tonsillectomy Family History Father Family history of bleeding disorder Hearing loss Heart disease Mother Cancer Other No family history of bleeding disorder Denies family history of Myocardial infarction Stroke Social History Smoking Status: Never smoker Second Hand Exposure: No; Do You Dip or Chew Tobacco: No; Tobacco Cessation Education Requested by Patient: No Hx Alcohol Use: No Hx Substance Use: No Preferred Language: Urdu Communication Ability: Effective Director Search Marketing Strategies Required: No Beliefs That Will Affect Care: None marital status: Current Living Situation: Personal Care Facility Current Living Situation Comment: [facility] How many Children do You have: 2 Other Information That Helps Us Care for You: No Feels Safe at Home: Yes Safety Concerns: Feels Safe At This Time Review of Systems Review of Systems: REVIEW OF SYSTEMS: Constitutional: No fever, sweats or chills Eyes: No diplopia, no worsening or blurred vision ENT: (+) hearing aids, hearing loss hearing, chronic dysphagia Respiratory: No cough, sputum, dyspnea at rest or on exertion Cardiovascular: No chest pain, tightness or palpitations Abdomen: No pain, nausea, vomiting, diarrhea or constipation Musculoskeletal: No joint pain, calf pain, swelling Neurologic: (+) as per HPI, No increase in weakness, or balance problems Psychiatric: (+) anxiety Skin: No rash or itch Physical Exam Physical Exam: PHYSICAL EXAM: General: awake, alert, no apparent distress Head: Normocephalic, atraumatic ENT: PERRL, EOMI, no pharyngeal exudate, mucous membranes moist Neuro: AAO x 3, speech clear and appropriate, strength intact 5/5 RUE,RLE, LLE, 4/5 to LUE. LUE ataxia with overshoot and coordination difficulties with finger to nose, sensation intact and equal all extremities and dermatomes, mild pronator drift to LUE, no vision changes or visual field deficits. Chest: equal rise and fall of the chest, no accessory muscle use, no heaves or thrills, scattered crackles, on room air, Cardiac: Regular rate and rhythm, telemetry reviewed-NSR, skin warm dry, cap refill <3 seconds, peripheral pulses +2 no JVD, no murmur, no edema GI: NABS x 4 quadrants, soft, nontender to palpation, no rebound, guarding or tenderness : Spontaneously voiding, no pain, no CVA tenderness, Extremities: Normal inspection, no peripheral edema or erythema, calfs nontender to palpation Psych: Normal mood and affect Skin: no rash or erythema Results & Data Results & Data ([facility]) Vital Signs (Past 12 Hours) Vital Signs Temp Pulse Pulse Resp BP BP Pulse Ox 12/29/20 12:30 83 20 149/67 H 93 12/29/20 12:00 84 21 160/87 H 92 12/29/20 11:30 84 20 166/81 H 94 12/29/20 11:24 96 H 20 163/91 H 93 12/29/20 11:00 74 20 173/86 H 12/29/20 10:35 84 20 92 12/29/20 10:07 85 19 170/95 H 94 12/29/20 10:00 36.8 C 84 18 163/80 H 95 Laboratory Results Abnormal Labs 12/29/20 12/29/20 12/29/20 10:17 10:17 10:42 RBC 4.12 L Hgb 11.4 L MCHC 30.0 L RDW Std Deviation 53.3 H RDW Coeff of Andrew 15.7 H Plt Count 405 H Lymph # (Auto) 1.19 L Creatinine 0.51 L BUN/Creatinine Ratio 27.4 H POC Glucose 100 H AST 14 L Globulin 4.7 H Albumin/Globulin Ratio 0.7 L Diagnostic Findings Chest X-Ray 12/29/20 10:20 XR chest 1V portable HISTORY: 85 years-old Female Stroke Like Symptoms acute strokelike symptoms COMPARISON: Chest CT 01/30/2019, chest radiograph 01/10/2019, CTA head and neck 12/29/2020. TECHNIQUE: Portable upright AP view of the chest FINDINGS: Cardiac silhouette is enlarged. Calcified plaque of the thoracic aorta. Chronic reticular nodular opacities, right greater than left. Suggested emphysema. No pneumothorax, large pleural effusion or lobar airspace consolidation. Degenerative changes of the shoulders and spine. IMPRESSION: 1. Cardiomegaly without overt pulmonary edema. 2. Chronic right greater than left reticular nodular opacities compatible with a nonspecific infectious or inflammatory pneumonitis. ACT 112: Negative or not required by law. The above report was generated using voice recognition software. It may contain grammatical, syntax or spelling errors. Electronically signed by: Edin Bullock M.D. 12/29/2020 10:[address] 12/29/20 10:20 CT OF THE HEAD WITHOUT CONTRAST CLINICAL HISTORY: Stroke Like Symptoms COMPARISON STUDY: Head CT February 25, 2016. TECHNIQUE: Helical axial images of the head were obtained without IV contrast. Automated exposure control was utilized for the study. A dose lowering technique was utilized adhering to the principles of ALARA. FINDINGS: No acute intracranial hemorrhage, midline shift or mass effect is present. Ventricular system is unremarkable. Basal cisterns are patent. There are no extra-axial collections. White matter hypodensities to small vessel disease. There are no findings to suggest acute dural sinus thrombosis or acute territorial infarct. Appearance of the brain is unchanged. Right mastoid air cells are partially opacified. This is unchanged. IMPRESSION: No acute intracranial findings. ACT 112: Negative or not required by law. Electronically signed by: Shane Kauffman M.D. 12/29/2020 10:51 AM Head CTA 12/29/20 10:20 CT angio head w con, CT angio neck with con CLINICAL HISTORY: 85 years-old Female with Stroke Like Symptoms. Acute strokelike symptoms COMPARISON STUDY: Head CT of same day TECHNIQUE: Unenhanced axial CT scan of the brain is performed. Subsequently, following the IV administration of 120 cc of Optiray, CT angiogram of the head and neck was performed from the aortic arch to the skull apex. Images are revie wed in the axial, sagittal, and coronal planes. 3-D MIPS images are created and assessed. IV contrast was administered without complication. All measurements were obtained according to NASCET criteria. A dose lowering technique was utilized adhering to the principles of ALARA. CT DOSE: 895.71 mGy.cm FINDINGS: The imaged opacified pulmonary tree all tree is unremarkable. Extensive atherosclerotic plaque of the thoracic aorta. Patency of the innominate and imaged subclavian arteries. Common carotid arteries are widely patent. Mild atherosclerotic plaque of the carotid bulbs and proximal cervical segments of the internal carotid arteries without significant stenosis. Distal cervical segment ICA tortuosity. Saccular outpouching involving the medial wall of the cavernous segment left ICA on image 107 of series 5 measures 5 x 3 x 5 mm in and AP, transverse and craniocaudal dimensions. Atherosclerotic plaque of the clinoid and supraclinoid segments. The middle and anterior cerebral arteries are patent. Codominant and widely patent vertebral arteries. Atherosclerotic plaque at the origin of the right vertebral artery without significant stenosis. Fenestrated basilar artery. Basilar and posterior cerebral arteries are patent. Mild multifocal luminal narrowing of the left posterior cerebral artery. No dissection, high-grade stenosis or arterial occlusion identified. Cerebral venous sinuses are patent. There is no abnormal intracranial enhancement. Age-related involutional changes with chronic microvascular ischemic disease. Bilateral mucus plugging with patchy partially imaged nodular consolidative opacities of the right upper lobe. Mild tracheobronchial secretions with layering secretions within the esophagus. Hypodense 1.7 cm right-sided thyroid nodule. No adenopathy. Degenerative changes of the cervical spine. IMPRESSION: 1. 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 No evidence of rupture. 2. Otherwise unremarkable CTA of the head and neck. 3. Biapical mucous plugging with partially imaged patchy nodular and consolidative right upper lobe opacities suggestive of an infectious or inflammatory bronchiolitis with pneumonitis. ACT 112: Negative or not required by law. The above report was generated using voice recognition software. It may contain grammatical, syntax or spelling errors. Electronically signed by: Edin Bullock M.D. 12/29/2020 10:54 AM Neck CTA 12/29/20 10:20 CT angio head w con, CT angio neck with con CLINICAL HISTORY: 85 years-old Female with Stroke Like Symptoms. Acute strokelike symptoms COMPARISON STUDY: Head CT of same day TECHNIQUE: Unenhanced axial CT scan of the brain is performed. Subsequently, following the IV administration of 120 cc of Optiray, CT angiogram of the head and neck was performed from the aortic arch to the skull apex. Images are reviewed in the axial, sagittal, and coronal planes. 3-D MIPS images are created and assessed. IV contrast was administered without complication. All measurements were obtained according to NASCET criteria. A dose lowering technique was utilized adhering to the principles of ALARA. CT DOSE: 895.71 mGy.cm FINDINGS: The imaged opacified pulmonary tree all tree is unremarkable. Extensive atherosclerotic plaque of the thoracic aorta. Patency of the innominate and imaged subclavian arteries. Common carotid arteries are widely patent. Mild atherosclerotic plaque of the carotid bulbs and proximal cervical segments of the internal carotid arteries without significant stenosis. Distal cervical segment ICA tortuosity. Saccular outpouching involving the medial wall of the cavernous segment left ICA on image 107 of series 5 measures 5 x 3 x 5 mm in and AP, transverse and craniocaudal dimensions. Atherosclerotic plaque of the clinoid and supraclinoid segments. The middle and anterior cerebral arteries are patent. Codominant and widely patent vertebral arteries. Atherosclerotic plaque at the origin of the right vertebral artery without significant stenosis. Fenestrated basilar artery. Basilar and posterior cerebral arteries are patent. Mild multifocal luminal narrowing of the left posterior cerebral artery. No dissection, high-grade stenosis or arterial occlusion identified. Cerebral venous sinuses are patent. There is no abnormal intracranial enhancement. Age-related involutional changes with chronic microvascular ischemic disease. Bilateral mucus plugging with patchy partially imaged nodular consolidative opacities of the right upper lobe. Mild tracheobronchial secretions with layering secretions within the esophagus. Hypodense 1.7 cm right-sided thyroid nodule. No adenopathy. Degenerative changes of the cervical spine. IMPRESSION: 1. 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 No evidence of rupture. 2. Otherwise unremarkable CTA of the head and neck. 3. Biapical mucous plugging with partially imaged patchy nodular and consolidative right upper lobe opacities suggestive of an infectious or inflammatory bronchiolitis with pneumonitis. ACT 112: Negative or not required by law. The above report was generated using voice recognition software. It may contain grammatical, syntax or spelling errors. Electronically signed by: Edin Bullock M.D. 12/29/2020 10:54 AM Medications Administered Discontinued Medications Aspirin (Aspirin Chew 324 Mg) 243 mg PO NOW STA Stop: 12/29/20 11:50 Last Admin: 12/29/20 11:59 Dose: 243 mg Documented by: [id number] Ioversol (Optiray 320 125ml) 120 ml IV ONCE ONE Stop: 12/29/20 10:26 Last Admin: 12/29/20 10:25 Dose: 120 ml Documented by: [id number] ECG Additional Comments: Normal sinus rhythm Possible Left atrial enlargement Borderline ECG no change from previous Code Status & VTE Plan Code Status CODE: DNR/DNI VTE: SCD's, Heparin 5000 bid VTE Prophylaxis Plan VTE Prophylaxis will be ordered: Yes Supervising Physician Co-Signing Physician Notes Patient seen and examined at bedside. Obtained history and physical examination during face to face encounter with patient. I reviewed above note and agree with it. Discussed plan with BAKARI Leal. I answered all of the patients questions. Patient will be admitted for possible CVA vs TIA will obtain MRI and consult neuro. PG Care Time/CCT Total # of Minutes Spent Total Time Spent with Patient: Total time spent is greater than 50% in coordination of care (as documented) at patient's floor/unit and/or counseling patient: Coding Level of Care Code INT OBSERVATION CARE 70M LVL 3 Diagnoses CVA (cerebral vascular accident) I63.9 CVA mechanism: unspecified Aneurysm I72.9 Parkinson disease G20 HTN (hypertension) I10 Hypertension type: primary hypertension Hypercholesterolemia E78.00 Depression with anxiety F41.8 Dysphagia R13.10 Dysphagia type: unspecified Lichen sclerosus et atrophicus L90.0 (1) Dysphagia Dysphagia type: unspecified Qualified Code(s): R13.10 - Dysphagia, unspecified (2) HTN (hypertension) Hypertension type: primary hypertension Qualified Code(s): I10 - Essential (primary) hypertension (3) CVA (cerebral vascular accident) CVA mechanism: unspecified Qualified Code(s): I63.9 - Cerebral infarction, unspecified
[2020-12-29] MEDS ORDERED: ONDANSETRON INJ 2 MG/ML 2 ML VIAL IV PRN (14:02)
[2020-12-29] MEDS ORDERED: PHARMACIST DISCHARGE MED REC CONSULT PRN (14:02)
[2020-12-29] MEDS ORDERED: ACETAMINOPHEN 325 MG TAB PO PRN (14:02)
[2020-12-29] MEDS ORDERED: POLYETHYLENE (MIRALAX) 17 GM PACK PO PRN (14:02)
[2020-12-29] MEDS: CARBIDOPA/LEVODOPA 25/100MG TAB PO SCH ×3 (15:19→21:07)
[2020-12-29] MEDS: CLOPIDOGREL BISULFATE 75 MG TAB PO SCH (15:19)
--- NOTE | 2020-12-29 17:28 | Magnetic Resonance Report ---
MRI OF THE BRAIN WITHOUT CONTRAST CLINICAL HISTORY: TIA vs. CVA LEFT-HANDED WEAKNESS. UNCONTROLLABLE MOVEMENTS. COMPARISON STUDY: CT scan the head dated 12/29/2020, MRI the brain dated 12/09/2011 FINDINGS: Sagittal T1, axial diffusion, T2 weighted axial, coronal FLAIR, and axial T1-weighted images were acq uired. No intra or extra-axial mass lesions are visualized Axial diffusion-weighted images reveal no evidence of acute or subacute infarction. There is no evidence of ventricular dilatation. Proton density T2-weighted and FLAIR images reveal moderate foci of increased T2 signal within the wh ite matter, likely on a small vessel basis. There are no abnormal flow voids. There are mild inflammatory changes within the right mastoid. IMPRESSION: 1. No evidence of intracranial mass in this noncontrast study 2. No evidence of acute or subacute infarction 3. Moderate chronic White matter disease likely on a small vessel ischemic basis 4. Mild inflammatory changes within the right mastoid ACT 112: Negative or not required by law. Electronically signed by: Nagi Prieto M.D. 12/29/2020 5:27 PM
--- NOTE | 2020-12-29 18:31 | Electrocardiogram Report ---
Test Reason : Blood Pressure : / mmHG Vent. Rate : 076 BPM Atrial Rate : 076 BPM P-R Int : 154 ms QRS Dur : 088 ms QT Int : 412 ms P-R-T Axes : 071 -07 056 degrees QTc Int : 463 ms Poor data quality, interpretation may be adversely affected Normal sinus rhythm Possible Left atrial enlargement Borderline ECG Confirmed by Lavelle Holder ([id number]) on 12/29/2020 6:30:50 PM Referred By: REFERRED SELF Confirmed By:Rene Holder
[2020-12-29] MEDS: SIMVASTATIN 40 MG TAB PO SCH (21:07)
[2020-12-29] MEDS: clonazePAM 0.25 MG TAB PO SCH (21:07)
[2020-12-29] MEDS: HEPARIN SOD 5,000 UNIT/0.5 ML VIAL SQ SCH (21:07)
[2020-12-30 07:47] LABS: Basophils # (auto) 0.02 K/uL (0-0.2); Basophils % (auto) 0.2 %; Eosinophils # (auto) 0.07 K/uL (0-0.5); Eosinophils % (auto) 0.6 %; Hematocrit (blood only) 35.2 % (37-47); Hemoglobin 10.6 g/dL (12.0-16.0); Immature Granulocytes # (auto) 0.02 K/uL (0.00-0.02); Immature Granulocytes % (auto) 0.2 %; Lymphocytes # (auto) 1.31 K/uL (1.2-3.4); Mean Corpuscular Hemoglobin 27.5 pg (25-34); Mean Corpuscular Hgb Conc 30.1 g/dL (32-36); Mean Corpuscular Volume 91.4 fL (80-100); Mean Platelet Volume 8.8 fL (7.4-10.4); Monocytes # (auto) 0.68 K/uL (0.11-0.59); Monocytes % (auto) 6.2 %; Neutrophils # (auto) 8.85 K/uL (1.4-6.5); Neutrophils % (auto) 80.8 %; Platelet Count 361 K/uL (130-400); RDW Coefficient of Variation 15.4 % (11.5-14.5); RDW Standard Deviation 52.3 fL (36.4-46.3); Red Blood Count 3.85 M/uL (4.2-5.4); White Blood Count 10.95 K/uL (4.8-10.8)
[2020-12-30] MEDS: CLOPIDOGREL BISULFATE 75 MG TAB PO SCH (07:49)
[2020-12-30] MEDS: FLUoxetine HCL 20 MG CAP PO SCH (07:49)
[2020-12-30] MEDS: clonazePAM 0.25 MG TAB PO SCH ×2 (07:49→20:18)
[2020-12-30] MEDS: amLODIPine BESYLATE 5 MG TAB PO SCH (07:49)
[2020-12-30] MEDS: HEPARIN SOD 5,000 UNIT/0.5 ML VIAL SQ SCH ×2 (07:49→20:15)
[2020-12-30] MEDS: PANTOprazole 40 MG TAB PO SCH (07:49)
[2020-12-30] MEDS: CARBIDOPA/LEVODOPA 25/100MG TAB PO SCH ×4 (07:50→20:15)
[2020-12-30 08:05] LABS: BUN Creatinine Ratio 30.8 (10-20); Calcium 9.4 mg/dl (8.5-10.1); Creatinine Clr Calc Pharmacy 71.5 ml/min; Est GFR (African American) 106.6 ml/min; Magnesium 2.1 mg/dl (1.8-2.4); Potassium 3.6 mmol/L (3.5-5.1)
--- NOTE | 2020-12-30 08:44 | XRay Report ---
XR chest 1V portable CLINICAL HISTORY: evaluate right upper lobe COMPARISON STUDY: Chest CT January 30, 2019 10. Chest radiograph December 29, 2020. FINDINGS: There is no pneumothorax or pleural effusion. There is mild cardiomegaly without evidence f or pulmonary edema. Incidental note is made of multiple old right rib fractures. Underlying bronchiec tasis is better depicted on prior chest CT. Nodular opacities with reticulonodular initial thickening within the right lung have increased. IMPRESSION: Increase in asymmetric reticulonodular interstitial thickening with opacities within the right lung. The findings favor an acute on chronic infectious process with underlying bronchiectasis and mucus plugging, better depicted on prior chest CT. ACT 112: Negative or not required by law. Electronically signed by: Shane Kauffman M.D. 12/30/2020 8:42 AM
[2020-12-30 09:59] LABS: Estimated Average Glucose 120 mg/dl; Hemoglobin A1C 5.8 % (4.5-5.6)
--- NOTE | 2020-12-30 09:59 | Neurology Consultation ---
Date of Consultation December 30, 2020 Assessment & Plan (1) TIA (transient ischemic attack): TIA localizing to the right cerebral hemisphere. Agree with switching from daily low-dose aspirin to clopidogrel. Continue with Zocor. Patient appears to be neurologically stable, continue to monitor blood pressure, systolic blood pressure goal 140 to 160 mmHg. 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 Would recommend outpatient neurosurgical evaluation at [facility]. Patient may be an appropriate candidate for coiling. 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 Continue with Sinemet. Patient may follow-up with me in clinic in 3 to 4 weeks. 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 She was last seen in neurology clinic September 22, 2020. Her Parkinson's has been characterized by a mild right upper extremity resting tremor with some generalization to the left hand as well. Her condition has been stable with Sinemet taken 4 times per day. She does not experience any motor fluctuations, orthostatic dizziness, restless leg syndrome or hallucinations. I did not make any adjustments to her Parkinson's disease medication at her last appointment. The patient presented to the emergency department yesterday complaining of left arm weakness that were noted upon awakening in the morning. She denies experiencing any associated weakness of the left leg or change in speech. She did experience a low-grade headache overnight. She reports that her left arm weakness seems to be improved this morning. She did not receive TPA given the timing of her presentation. A CT of the head was negative for hemorrhage or acute process. CT angiography of the head and neck revealed a saccular aneurysm involving the medial cavernous segment of the left ICA measuring 5 x 3 x 5 mm with no evidence of rupture. MRI of the brain was negative for acute or subacute stroke. There is evidence of chronic small vessel ischemic disease. Allergies Allergy/AdvReac Type Severity Reaction Status Date / Time buspirone Allergy Unknown unknown - Verified 12/29/20 11:55 pt not sure lisinopril Allergy Unknown unknown - Verified 12/29/20 11:55 pt not sure morphine Allergy Unknown unknown, Verified 12/29/20 11:55 pt not sure pramipexole Allergy Unknown unknown, Verified 12/29/20 11:55 pt not sure Home Medications Medication Instructions Recorded Confirmed Type clonazepam 0.5 mg tablet 0.25 mg PO BID #30 tab 02/07/19 12/29/20 History omeprazole 40 mg capsule,delayed 40 mg PO QAM cap 02/07/19 12/29/20 History release simvastatin 40 mg tablet 40 mg PO HS tab 02/07/19 12/29/20 History amlodipine 10 mg tablet (Norvasc) 10 mg PO QAM #30 tab 02/14/19 12/29/20 History fluoxetine 40 mg capsule (Prozac) 40 mg PO QAM 09/22/20 12/29/20 History ascorbic acid (vitamin C) 1,000 mg 1,000 mg PO QAM 12/29/20 12/29/20 History tablet (Vitamin C) aspirin 81 mg tablet,delayed 81 mg PO QAM 12/29/20 12/29/20 History release (Aspirin Low Dose) calcium carbonate 600 mg calcium 600 mg PO BID 12/29/20 12/29/20 History (1,500 mg) tablet (Calcium) carbidopa 25 mg-levodopa 100 mg 4 tab PO QID 12/29/20 12/29/20 History tablet (Sinemet) triamcinolone acetonide 0.05 % 1 applic TOPICAL 2XWK PRN 12/29/20 12/29/20 History topical ointment Patient History Medical History Anemia Anxiety Chronic back pain Family history of reaction to anesthesia mother - n/v GERD (gastroesophageal reflux disease) Hard of hearing History of colon polyps QUESTIONABLE HX OF , PT NOT SURE HTN (hypertension) Hyperlipidemia Parkinson disease Surgical History History of cholecystectomy History of colonoscopy History of tonsillectomy Family History Father Family history of bleeding disorder Hearing loss Heart disease Mother Cancer Other No family history of bleeding disorder Denies family history of Myocardial infarction Stroke Social History Smoking Status: Never smoker Second Hand Exposure: No; Do You Dip or Chew Tobacco: No; Tobacco Cessation Education Requested by Patient: No Hx Alcohol Use: No Hx Substance Use: No Preferred Language: Bengali Communication Ability: Effective Clinical Nutrition Manager Required: No Beliefs That Will Affect Care: None marital status: Current Living Situation: Personal Care Facility Current Living Situation Comment: [facility] How many Children do You have: 2 Other Information That Helps Us Care for You: No Feels Safe at Home: Yes Safety Concerns: Feels Safe At This Time Assistive Devices: None Review of Systems Constitutional: no fever and no chills Eyes: no blind spots and no diplopia Ear, Nose, Mouth, Throat: no ear pain and no hearing loss Respiratory: no cough and no dyspnea Cardiovascular: no chest pain and no palpitations Gastrointestinal: no constipation and no diarrhea/loose stools Genitourinary: no urinary urgency and no urinary incontinence Musculoskeletal: No myalgia Integumentary: no rash and no lesions Neurologic: as per Subjective / HPI Psychiatric: no behavioral changes, no depression, no abnormal sleep pattern and no anxiety Hematologic / Lymphatic: no easy bruising and no lymphadenopathy Exam (Neuro) Constitutional: well developed and well nourished; no acute distress Eyes: normal visual morgan by confrontation, PERRL, normal accommodation and EOM intact bilaterally; no fundoscopic abnormality, no nystagmus and no papilledema Cardiovascular: Vessels: normal carotid upstroke; no carotid bruit Neurologic: Oriented to:: Person, Place and Time Memory: Short Term Intact and Remote Intact Attention: Span Intact and Concentration Intact Language: Naming Objects and Repeating Phrases Speech Fluency: negative Dysarthria Speech Aphasia: negative Aphasia Fund of Knowledge: Current Events, Past History and Vocabulary Cranial Nerves: Normal II (Visual morgan full to confrontation, visual acuity normal), III, IV, (Pupils equal round reactive to light and accommodation, eye movements normal), V (Facial sensation intact), VII (There is no facial droop or weakness), VIII (Hearing intact), IX, X (Palate elevates to midline), XI (Shoulder shrug intact) and XII (Tongue protrudes to midline) Motor Strength: Normal Lower Extremities and Normal Upper Extremities; negative Pronator Drift Motor Tone: Normal Lower Extremities and Normal Upper Extremities Rigidity: Rigidity Muscle Bulk/Involuntary Movements: Pill Rolling Tremor; negative Muscle Atrophy Sensation: Light Touch Intact, Pain/Temperature Intact, Vibration Intact and Proprioception Intact Coordination: Normal; negative Dysdiadochokinesia, Finger-Nose Abnormal or Heel-Elder Abnormal Deep Tendon Reflexes: Rt Triceps: 2+, Lt Triceps: 2+, Rt Biceps: 2+, Lt Biceps: 2+, Rt Brachioradialis: 2+, Lt Bra chioradialis: 2+, Rt Patellar: 2+, Lt Patellar: 2+, Rt Ankle: 2+ and Lt Ankle: 2+ Special Tests: negative Babinski Present Details: Gait not tested in the context of patient's current neurologic status. Patient is mildly bradykinetic. Results & Data ([facility]) Vital Signs (Past 12 Hours) Vital Signs Temp Pulse Pulse Resp BP Pulse Ox 12/30/20 07:45 36.9 C 78 18 145/67 H 92 12/30/20 04:54 37.0 C 83 20 126/67 93 12/29/20 23:37 37.0 C 86 20 140/76 94 12/29/20 22:19 83 Laboratory Results WBC 10.95, hemoglobin 10.6, hematocrit 35.2, platelet count 361, sodium 139, potassium 3.6, BUN 14, creatinine 0.45, glucose 92, calcium 9.4, magnesium 2.1, triglycerides 92, cholesterol 134, LDL 53, VLDL 18, HDL [address] of the head, CT angiography of the head and neck, and brain MRI are as described in the history of present illness. I reviewed the images as well as the radiologist's interpretation of these tests. Electrocardiogram reveals a normal sinus rhythm, 76 bpm Coding Level of Care Code 68854 Initial Inpt Care Lvl 3 Diagnoses TIA (transient ischemic attack) G45.9 Carotid aneurysm, left I72.0 Parkinson disease G20
[2020-12-30] MEDS ORDERED: PNEUMOCOCCAL Polysaccharide Vaccine 25mcg/0.5mL vial/Syr IM ONE (13:30)
--- NOTE | 2020-12-30 16:33 | XCELERA ---
[id number]
[2020-12-30 18:39] LABS: Basophils # (auto) 0.01 K/uL (0-0.2); Basophils % (auto) 0.1 %; Eosinophils # (auto) 0.04 K/uL (0-0.5); Eosinophils % (auto) 0.3 %; Hematocrit (blood only) 37.4 % (37-47); Hemoglobin 11.5 g/dL (12.0-16.0); Immature Granulocytes # (auto) 0.03 K/uL (0.00-0.02); Immature Granulocytes % (auto) 0.2 %; Lymphocytes # (auto) 1.14 K/uL (1.2-3.4); Mean Corpuscular Hemoglobin 28.1 pg (25-34); Mean Corpuscular Hgb Conc 30.7 g/dL (32-36); Mean Corpuscular Volume 91.4 fL (80-100); Mean Platelet Volume 9.1 fL (7.4-10.4); Monocytes # (auto) 0.63 K/uL (0.11-0.59); Neutrophils # (auto) 10.87 K/uL (1.4-6.5); Neutrophils % (auto) 85.4 %; Platelet Count 396 K/uL (130-400); RDW Coefficient of Variation 15.4 % (11.5-14.5); RDW Standard Deviation 52.1 fL (36.4-46.3); Red Blood Count 4.09 M/uL (4.2-5.4); White Blood Count 12.72 K/uL (4.8-10.8)
[2020-12-30] MEDS: SIMVASTATIN 40 MG TAB PO SCH (20:15)
--- NOTE | 2020-12-30 21:53 | Hospitalist Progress Note ---
Date of Service December 30, 2020 Assessment & Plan (1) CVA (cerebral vascular accident): Plan: TIA - LUE weakness- improved - Allow for permissive BP- will continue agents in the morning - MRI negative for stroke. - CTA/CT head negative for large vessel CVA - NIHSS-1 - Asa changed to PLAVIX only 75mg daily - VTE- Heparin - Dysphagia- chronic- soft bite sized diet - ECHO- completed - Lipid panel in morning- continue zocor 40 - Neuro consult: agrees this is a TIA. (2) Aneurysm: Saccular aneurysm involves the medial cavernous segment of the left ICA measuring 5 x 3 x 5 mm. No evidence of rupture. - Discussed case with Dr. Jackson as asymptomatic- follow size and symptoms - If acute change repeat imaging evaluation (3) Parkinson disease: Continue carbidopa-levodopa - symptoms seem well controlled on exam and patient reports no declination (4) HTN (hypertension): Goal <140 as outpatient - Allow permissive HTN- pending MRI - Continue antihypertensives tomorrow - should trend 24-48 hours for assessment of control through the day with her aneurysm (5) Hypercholesterolemia: Lipid panel in the morning - continue Zocor 40 mg (6) Depression with anxiety: No acute needs, continue home agents (7) Dysphagia: Reports as chronic - pooling of secretions in esophagus and right lobe - not infectious appearing at this time without and no effusion - no indication for treatment of likely pneumonitis- CXR in morning - [employer] evaluate with CVA protocol (8) Lichen sclerosus et atrophicus: Seen by gyne in 12/14/20- continue clobetasol - area was snipped (2) Aneurysm: (3) Parkinson disease: (4) HTN (hypertension): (5) Hypercholesterolemia: (6) Depression with anxiety: (7) Dysphagia: (8) Lichen sclerosus et atrophicus: Admission and Anticipated Discharge Date Admission Date: December 29, 2020 Subjective Patient reports feeling better. She has no new symptoms. Review of Systems Review of Systems: All systems reviewed & are unremarkable except as noted in HPI & below Physical Exam Physical Exam: PHYSICAL EXAM: General: awake, alert, no apparent distress Head: Normocephalic, atraumatic ENT: PERRL, EOMI, no pharyngeal exudate, mucous membranes moist Neuro: AAO x 3, speech clear and appropriate, strength intact 5/5 RUE,RLE, LLE, 4/5 to LUE. LUE ataxia with overshoot and coordination difficulties with finger to nose, sensation intact and equal all extremities and dermatomes, mild pronator drift to LUE, no vision changes or visual field deficits. Chest: equal rise and fall of the chest, no accessory muscle use, no heaves or thrills, scattered crackles, on room air, Cardiac: Regular rate and rhythm, telemetry reviewed-NSR, skin warm dry, cap refill <3 seconds, peripheral pulses +2 no JVD, no murmur, no edema GI: NABS x 4 quadrants, soft, nontender to palpation, no rebound, guarding or tenderness : Spontaneously voiding, no pain, no CVA tenderness, Extremities: Normal inspection, no peripheral edema or erythema, calfs nontender to palpation Psych: Normal mood and affect Skin: no rash or erythema Results & Data Results & Data ([facility]) Vital Signs (Past 12 Hours) Vital Signs Temp Pulse Pulse Resp BP Pulse Ox 12/30/20 19:00 37.7 C H 93 H 18 147/78 H 94 12/30/20 15:21 38.0 C H 94 H 18 117/67 92 12/30/20 11:26 37.2 C 90 20 125/67 93 PG Care Time/CCT Total # of Minutes Spent Total Time Spent with Patient: Total time spent is greater than 50% in coordination of care (as documented) at patient's floor/unit and/or counseling patient: Coding Level of Care Code 05356 Subseq Hosp Care Lvl 2 Diagnoses CVA (cerebral vascular accident) I63.9 CVA mechanism: unspecified Aneurysm I72.9 Parkinson disease G20 HTN (hypertension) I10 Hypertension type: primary hypertension Hypercholesterolemia E78.00 Depression with anxiety F41.8 Dysphagia R13.10 Dysphagia type: unspecified Lichen sclerosus et atrophicus L90.0 Time Spent (min) 25 (1) Dysphagia Dysphagia type: unspecified Qualified Code(s): R13.10 - Dysphagia, unspecified (2) HTN (hypertension) Hypertension type: primary hypertension Qualified Code(s): I10 - Essential (primary) hypertension (3) CVA (cerebral vascular accident) CVA mechanism: unspecified Qualified Code(s): I63.9 - Cerebral infarction, unspecified
[2020-12-30] MEDS ORDERED: cefTRIAXone SODIUM 1,000 MG in DEXTROSE 5% 50 ML IV SCH (23:45)
[2020-12-31 01:45] LABS: Appearance Urine Clear (Clear); Bacteria Urine Automated Negative (Negative); Bilirubin Urine Negative (Negative); Blood Urine Negative (Negative); Color Urine Dark Yellow; Epithelial Cell Urine Auto >30 /lpf (0-5); Glucose Urine UA Negative (Negative); Ketones Urine 1+ (Negative); Leukocyte Esterase Urine 2+ (Negative); Nitrite Urine Negative (Negative); Protein Urine Trace (Negative); RBC Urine Automated 0-4 /hpf (0-4); Specific Gravity Urine 1.031 (1.000-1.030); Urobilinogen Urine Negative (Negative); pH Urine 5.5 (4.5-7.5)
[2020-12-31] MEDS: amLODIPine BESYLATE 5 MG TAB PO SCH (08:00)
[2020-12-31] MEDS: PANTOprazole 40 MG TAB PO SCH (08:00)
[2020-12-31] MEDS: HEPARIN SOD 5,000 UNIT/0.5 ML VIAL SQ SCH (08:01)
[2020-12-31] MEDS: CARBIDOPA/LEVODOPA 25/100MG TAB PO SCH ×3 (08:01→16:37)
[2020-12-31] MEDS: CLOPIDOGREL BISULFATE 75 MG TAB PO SCH (08:01)
[2020-12-31] MEDS: FLUoxetine HCL 20 MG CAP PO SCH (08:01)
[2020-12-31] MEDS: clonazePAM 0.25 MG TAB PO SCH (08:06)
[2020-12-31 08:10] LABS: Basophils # (auto) 0.02 K/uL (0-0.2); Basophils % (auto) 0.2 %; Eosinophils # (auto) 0.02 K/uL (0-0.5); Eosinophils % (auto) 0.2 %; Hematocrit (blood only) 33.9 % (37-47); Hemoglobin 10.3 g/dL (12.0-16.0); Immature Granulocytes # (auto) 0.03 K/uL (0.00-0.02); Immature Granulocytes % (auto) 0.3 %; Lymphocytes # (auto) 1.42 K/uL (1.2-3.4); Lymphocytes % (auto) 11.9 %; Mean Corpuscular Hemoglobin 27.7 pg (25-34); Mean Corpuscular Hgb Conc 30.4 g/dL (32-36); Mean Corpuscular Volume 91.1 fL (80-100); Mean Platelet Volume 9.1 fL (7.4-10.4); Monocytes # (auto) 0.75 K/uL (0.11-0.59); Monocytes % (auto) 6.3 %; Neutrophils # (auto) 9.66 K/uL (1.4-6.5); Neutrophils % (auto) 81.1 %; Platelet Count 351 K/uL (130-400); RDW Coefficient of Variation 15.5 % (11.5-14.5); RDW Standard Deviation 52.2 fL (36.4-46.3); Red Blood Count 3.72 M/uL (4.2-5.4)
[2020-12-31 08:21] LABS: Prothrombin Time 10.1 Seconds (9.0-12.0)
[2020-12-31 08:45] LABS: Est GFR (African American) 107.4 ml/min; Est GFR (Non-African American) 92.7 ml/min; Potassium 3.7 mmol/L (3.5-5.1)
[2020-12-31 08:46] LABS: BUN Creatinine Ratio 33.9 (10-20); Calcium 9.1 mg/dl (8.5-10.1); Creatinine Clr Calc Pharmacy 72.7 ml/min; Magnesium 2.1 mg/dl (1.8-2.4)
[2020-12-31] MEDS ORDERED: STROKE PATIENT DISCHARGE STA (16:00)
--- NOTE | 2020-12-31 16:30 | Pharmacy Report ---
Pharmacist Stroke Counseling - Date of Service December 31, 2020 - Scope: Pharmacy has been consulted to provide medication discharge counseling for this patient admitted with transient ischemic attack as per the Pharmacist Discharge Counseling for Stroke Patients Protocol. - Medications on Discharge: Home Medications Medication Instructions Recorded Confirmed clonazepam 0.5 mg tablet 0.25 mg PO BID #30 tab 02/07/19 12/29/20 simvastatin 40 mg tablet 40 mg PO HS tab 02/07/19 12/29/20 amlodipine 10 mg tablet (Norvasc) 10 mg PO QAM #30 tab 02/14/19 12/29/20 fluoxetine 40 mg capsule (Prozac) 40 mg PO QAM 09/22/20 12/29/20 ascorbic acid (vitamin C) 1,000 mg 1,000 mg PO QAM 12/29/20 12/29/20 tablet (Vitamin C) calcium carbonate 600 mg calcium 600 mg PO BID 12/29/20 12/29/20 (1,500 mg) tablet (Calcium) carbidopa 25 mg-levodopa 100 mg 4 tab PO QID 12/29/20 12/29/20 tablet (Sinemet) triamcinolone acetonide 0.05 % 1 applic TOPICAL 2XWK PRN 12/29/20 12/29/20 topical ointment New Rx's Medication Instructions Recorded amoxicillin 875 mg-potassium 1 tab PO BID #10 tab 12/31/20 clavulanate 125 mg tablet (Augmentin) clopidogrel 75 mg tablet 75 mg PO QAM #30 tab 12/31/20 pantoprazole 40 mg tablet,delayed 40 mg PO QAM #30 tab 12/31/20 release - Action: The above medications, specifically ones for stroke treatment/prophylaxis, have been reviewed in detail with the patient and/or patient physician representative(s) prior to discharge. This includes indication, common adverse reactions, drug interactions, and medication administration. Medication counseling has been employed using the teach-back method to ensure understanding. - Outcome: The patient and/or patient physician representative(s) have demonstrated understanding of the medications. Additional comments: * Patient manges own medications at the [place], pillbox provided * Understands medication changes, namely switching from omeprazole to pantoprazole and from aspirin to Plavix * Patient to self-monitor for signs/symptoms of bleeding * No change to outpatient simvastatin * Patient also to complete 5 more days of Augmentin for possible bronchitis - instructed patient to take with food and to complete full course even if feeling better Thank you for allowing pharmacy to be involved in the care of this patient. Please call [phone] with any additional questions
--- NOTE | 2021-01-01 08:10 | Discharge Summary ---
Date of Service December 31, 2020 Admission HPI Per Admitting Provider 85 YOF with past medical history of HTN, HLD, osteopenia, idiopathic Parkinson's, chronic mastoiditis, hearing loss, GERD, underweight. Patient comes in today for awakening at 0530 and noticing that her left arm was weak and uncoordinated. She reports that she could not raise her arm or get it to do anything. She was brought to the [facility] via EMS. Her last known well she reports was at bedtime around midnight last night. In the EMD she had a CT scan of the head performed that revealed no acute process with chronic right mastoiditis. CTA of the head and neck performed which revealed an incidental saccular aneur ysm that involves the medial cavernous segment of the left ICA 5x3x5 without rupture. NIHSS of 1. Patient was not a t-PA candidate secondary to time last known well. Her symptoms are improving but remains with some LUE ataxia and overshoot with finger to nose. Patient will be admitted for CVA vs. TIA workup. Patient denies any headaches, visual changes, or facial pain or hearing changes. Admission Exam Per Admitting Provider General: awake, alert, no apparent distress Head: Normocephalic, atraumatic ENT: PERRL, EOMI, no pharyngeal exudate, mucous membranes moist Neuro: AAO x 3, speech clear and appropriate, strength intact 5/5 RUE,RLE, LLE, 4/5 to LUE. LUE ataxia with overshoot and coordination difficulties with finger to nose, sensation intact and equal all extremities and dermatomes, mild pronator drift to LUE, no vision changes or visual field deficits. Chest: equal rise and fall of the chest, no accessory muscle use, no heaves or thrills, scattered crackles, on room air, Cardiac: Regular rate and rhythm, telemetry reviewed-NSR, skin warm dry, cap refill <3 seconds, peripheral pulses +2 no JVD, no murmur, no edema GI: NABS x 4 quadrants, soft, nontender to palpation, no rebound, guarding or tenderness Extremities: Normal inspection, no peripheral edema or erythema, calfs nontender to palpation Psych: Normal mood and affect Skin: no rash or erythema Principal Diagnosis Transient ischemic attack Discharge Exam General: awake, alert, no apparent distress Head: Normocephalic, atraumatic ENT: PERRL, EOMI, no pharyngeal exudate, mucous membranes moist Neuro: AAO x 3, speech clear and appropriate, strength intact 5/5 in all extremities. Sensation intact and equal all extremities and dermatomes, no vision changes or visual field deficits. Chest: equal rise and fall of the chest, no accessory muscle use, no heaves or thrills, scattered crackles, on room air, Cardiac: Regular rate and rhythm, telemetry reviewed-NSR, skin warm dry, cap refill <3 seconds, peripheral pulses +2 no JVD, no murmur, no edema GI: NABS x 4 quadrants, soft, nontender to palpation, no rebound, guarding or tenderness Extremities: Normal inspection, no peripheral edema or erythema, calfs nontender to palpation Psych: Normal mood and affect Skin: no rash or erythema Discharge Data Allergies Allergy/AdvReac Type Severity Reaction Status Date / Time buspirone Allergy Unknown unknown - Verified 12/29/20 11:55 pt not sure lisinopril Allergy Unknown unknown - Verified 12/29/20 11:55 pt not sure morphine Allergy Unknown unknown, Verified 12/29/20 11:55 pt not sure pramipexole Allergy Unknown unknown, Verified 12/29/20 11:55 pt not sure Consultations 12/29/20 11:49 ED Decision to Admit Stat 12/29/20 14:02 Consult Neurology Routine Ordered Studies 12/29/20 10:20 CT angio head w con Stat CT angio neck with con Stat CT head/brain wo con Stat 12/29/20 14:02 MR brain wo con Routine Hospital Course (1) CVA (cerebral vascular accident): CVA vs. TIA - LUE weakness- improving since this morning - Allow for permissive BP- will continue agents in the morning - MRI negative - CTA/CT head negative for large vessel CVA - NIHSS-1 - Asa changed to PLAVIX only 75mg daily - VTE- Heparin - Dysphagia- chronic- soft bite sized diet - ECHO- showing LVH - Lipid panel in morning- continue zocor 40 - NeuRo consult -PATIENT will be switched to plavix. May need to be careful with being on fluoxetine and plavix. Will defer to PCP if this needs to be changed. Input from Neuro: TIA localizing to the right cerebral hemisphere. Agree with switching from daily low-dose aspirin to clopidogrel. Continue with Zocor. Patient appears to be neurologically stable, continue to monitor blood pressure, systolic blood pressure goal 140 to 160 mmHg. 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 This is not causing any problems now, but would recommend outpatient neurosurgical evaluation at [facility]. (3) Parkinson disease: Continue carbidopa-levodopa - symptoms seem well controlled on exam and patient reports no declination (4) HTN (hypertension): Goal <140 as outpatient - Allow permissive HTN- pending MRI - Continue antihypertensives tomorrow - should trend 24-48 hours for assessment of control through the day with her aneurysm (5) Hypercholesterolemia: Lipid panel in the morning - continue Zocor 40 mg (6) Depression with anxiety: No acute needs, continue home agents (7) Dysphagia: Reports as chronic - pooling of secretions in esophagus and right lobe - not infectious appearing at this time without and no effusion - no indication for treatment of likely pneumonitis- CXR in morning - [employer]APE[employer] evaluate with CVA protocol (8) Lichen sclerosus et atrophicus: Seen by gyne in 12/14/20- continue clobetasol - area was snipped Total Time Total Time Spent Total Time Spent (In Minutes): 32 Discharge Plan Discharge Items Patient Disposition: Personal Senior Care Reason For Visit: LEFT ARM WEAKNESS Discharge Diagnosis: left arm weakness Activity: Resume your previous activity Non-emergency contact: Primary Care Provider Call non-emergency contact if: you have any medication questions Follow-up/Referrals: Santiago Ulloa MD [Primary Care Provider] - 01/05/21 10:45 am (Will see patient at the [place] in the medical office.) Diet: Low Sodium (2gm) Diet Texture: Easy to Chew Addtl Attending Provider Instructions: You were found to have a transient ischemic attack to the right cerebral hemisphere. This means you did not suffer a stroke, but this is a risk to having a stroke in the future. Recommended switching from daily low-dose aspirin to clopidogrel. 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 This is not causing any problems now, but would recommend outpatient neurosurgical evaluation at [facility]. Stable idiopathic mild to moderate Parkinson's disease. Continue with Sinemet. You were found to have a fever and likely may have bronchitits. You responded to antibitoics. will continue augmentin for 5 days. Please continue with physical therapy to increase her strength. DX ambulatory dysfunction Pending Studies at Discharge: No Stand-Alone Forms: Medications to Prevent Stroke, My [place], Smoking Cessation Skilled Items Patient informed of condition?: Yes DNR: Yes Discharge Level of Care: Other Communicable Disease: Yes Discharge Prognosis: Stable Lines: None Urinary Catheter: No Medications and DC Order Prescriptions: New clopidogrel 75 mg Tablet 75 mg PO QAM Qty: 30 RF: 0 pantoprazole 40 mg Tablet,Delayed Release (Dr/Ec) 40 mg PO QAM Qty: 30 RF: 0 amoxicillin-pot clavulanate [Augmentin] 875-125 mg tablet 1 tab PO BID Qty: 10 RF: 0 Continued fluoxetine [Prozac] 40 mg capsule 40 mg PO QAM RF: 0 simvastatin 40 mg tablet 40 mg PO HS RF: 0 clonazepam 0.5 mg tablet 0.25 mg PO BID Qty: 30 RF: 0 amlodipine [Norvasc] 10 mg tablet 10 mg PO QAM Qty: 30 RF: 0 ascorbic acid (vitamin C) [Vitamin C] 1,000 mg Tablet 1,000 mg PO QAM RF: 0 calcium carbonate [Calcium 600] 600 mg calcium (1,500 mg) Tablet 600 mg PO BID RF: 0 triamcinolone acetonide 0.05 % Ointment 1 applic TOPICAL [id number] PRN (Reason: .) RF: 0 carbidopa-levodopa [Sinemet] 25-100 mg tablet 4 tab PO QID RF: 0 Discontinued omeprazole 40 mg capsule,delayed release(DR/EC) 40 mg PO QAM RF: 0 aspirin [Aspirin Low Dose] 81 mg Tablet,Delayed Release (Dr/Ec) 81 mg PO QAM RF: 0 Discharge Orders: Discharge Order (Routine); Ordered 12/31/20 Ordered By: Waldo Miller Admission Data Admit Date/Time: 12/29/20 12:44 Attending Provider: Waldo Miller Admit Provider: Waldo Miller Primary Care Provider: Santiago Ulloa Other Providers: Waldo Miller ; Ruddy Jackson. Other Interventions: Discharge Summary Assessment (RN) Last Done: 12/31/20 16:12 Coding Level of Care Code 20052 OBS Care - Discharge Diagnoses CVA (cerebral vascular accident) I63.9 CVA mechanism: unspecified Aneurysm I72.9 Parkinson disease G20 HTN (hypertension) I10 Hypertension type: primary hypertension Hypercholesterolemia E78.00 Depression with anxiety F41.8 Dysphagia R13.10 Dysphagia type: unspecified Lichen sclerosus et atrophicus L90.0 Time Spent (min) 32
== END 2020-12-31 17:43 | disposition home or self-care (01) ==
LOC: ED 09:55 → 2W 09:55